=== PATIENT | female | born 1940 | race Caucasian/White ===

== ENCOUNTER 2017-10-26 10:09 | Inpatient (IN) | payer OTHER, MEDICARE, SELFPAY ==
[2017-10-26] VITALS (7 sets, daily range): BP systolic 105–143; BP diastolic 43–90; PULSE 66–75; RESP 14–18; TEMP 36.6–37.1; O2SAT 94–98; BMI 24.7; BMI 25.4; BMI 25.5
--- NOTE | 2017-10-26 10:34 | RAD_ITS ---
STUDY: X-RAY - PELVIS AND LEFT HIP REASON FOR EXAM: Left hip pain, fall 1 week ago. TECHNIQUE: Radiological exam, hip, unilateral, with pelvis when performed; 2 or 3 views. COMPARISON: None. FINDINGS: There is vascular calcification. There are degenerative changes of the lower lumbar spine There is mild enthesopathy of the iliac wings bilaterally. Normal bilateral superior and inferior pubic rami. Normal pubic symphysis. Normal bilateral ischial tuberosities. There is a displaced left femoral neck fracture. Normal acetabulum. Normal hip joint. RAD/Hip 2-3 Views with Pelvis IMPRESSION: Left femoral neck fracture. Electronically Signed: Rene Martin MD at 11:44 EST Tel , Service support ,
--- NOTE | 2017-10-26 11:15 | RAD_ITS ---
STUDY: X-RAY CHEST REASON FOR EXAM: Female, 77 years old. Trauma, status post fall TECHNIQUE: PA and lateral views of the chest. COMPARISON: None. FINDINGS: There is some atelectasis at the right lung base. The left upper lobe is hyperinflated. There is no demonstrated pleural abnormality. Normal size heart. Normal mediastinum and laura. Normal visualized pulmonary arteries. There is mild calcification of the aortic arch. There are diffuse degenerative changes of the visualized thoracic spine. Normal visualized ribs, clavicles, and shoulders. There is no demonstrated abnormality of the visualized soft tissue structures of the upper abdomen. RAD/Chest 1 View IMPRESSION: Right basilar atelectasis. Hyperinflation of the left upper lobe. Electronically Signed: Shorty Ponce DO at 12:03 EST Tel , Service support ,
--- NOTE | 2017-10-26 11:55 | EKG12_ITS ---
Test Reason : FALL Blood Pressure : / mmHG Vent. Rate : 067 BPM Atrial Rate : 067 BPM P-R Int : 162 ms QRS Dur : 126 ms QT Int : 410 ms P-R-T Axes : 034 -45 008 degrees QTc Int : 433 ms Normal sinus rhythm Leftward axis Left bundle branch block Abnormal ECG Confirmed by PETRONA BRUNSON, ADALGISA ([id number]), news editor ROBER BEDOLLA ([id number]) on 10/28/2017 1:23:10 PM Referred By: JAZ Confirmed By:ADALGISA RUSS MD
--- NOTE | 2017-10-26 12:17 | ED.DCSUM_ITS ---
- ER Visit Summary Date of Service: 10/26/17 Chief Complaint: Left hip and groin pain History of Present Illness: The patient is a 77 F who had a mechanical fall 8 days ago. She was at work. She tripped over a patient's walker. She was able to stand up and partially weight-bear. She has been ambulate and very little at home. She has been transferring from a chair to a bedside commode. Eyes any other injuries. She denies head injury loss of consciousness headache chest pain shortness of breath back pain abdominal pain or injury to any other extremity. Physical Examination: afebrile vitals are stable Heart regular rate and rhythm Lungs are clear Abdomen soft Patient has painful limited range of motion of the left hip pelvis is stable to compression normal range of motion without pain of the bilateral upper extremities and right lower extremity. Active full range of motion the knee ankle and foot with no pain. 2+ dorsalis pedis pulses Test Results: Chest x-ray shows atelectasis and hyperinflation of the left upper lobe. Hip x-ray does show left femoral neck fracture. EKG shows sinus rhythm at a rate of 67 with a left bundle branch block. Labs including CBC BMP and INR currently pending. Emergency Department Course and Treatment: X-ray does show a femoral neck fracture. Patient was discussed with orthopedics and will be admitted to the hospitalist service with plan for surgical intervention tomorrow. Treatment Plan: [] Disposition: Admit Impression: Left hip fracture This note was generated with [employer] dictation software. It may contain incorrect words, spelling, and punctuation that were not noted in review of the chart prior to signing ED Disposition - Plan for ED Patient: Chief Complaint: Fall Referrals: Donald Munguia MD [Primary Care Provider] -
--- NOTE | 2017-10-26 12:23 | ED.RN ---
PT REFUSES PAIN MEDICATION AT THIS TIME. MEDICATION WILL REMAIN ON THE MAR FOR FUTURE ADMINISTRATION.
[2017-10-26 12:35] LABS: Absolute Lymphocyte Count 1.42 X10^3/ul (0.83-4.51); Absolute Neutrophil Count 10.8 X10^3/uL (2.0-7.7); Basophil# 0.05 X10^3/uL; Basophil% 0.4 % (0-1); Eosinophil# 0.37 X10^3/uL; Eosinophils% 2.7 % (0-5); Hematocrit 42.4 % (37-47); Hemoglobin 13.9 g/dl (12.0-15.0); Lymphocyte # 1.42 X10^3/ul (4.0); Lymphocyte % 10.5 % (19-41); Mean Corp Hgb Conc 32.8 g/gl (32-36); Mean Corpuscular Volume 91.4 fL (81-99); Mean Platelet Vol. 10.2 fl (6.2-12.0); Monocyte# 0.82 X10^3/uL; Monocyte% 6.1 % (0-10); Neutrophil # 10.84 X10^3/uL (2.7-7.7); Neutrophil % 80.1 % (47-70); Platelet Count 388 K/mm3 (150-450); RBC Distribution Width CV 13.2 % (11.6-14.6); RBC Distribution Width SD 44.1 fl (35.1-43.9); Red Blood Count 4.64 M/mm3 (4.2-5.4); White Blood Count 13.5 K/mm3 (4.4-11.0)
[2017-10-26 12:36] LABS: POSITIVE COUNT NO; POSITIVE DIFFERENTIAL NO; POSITIVE MORPHOLOGY NO
[2017-10-26 12:39] LABS: Anion Gap 5 (5-15); BUN 23 mg/dL (7-18); BUN/Creat Ratio 26.7 RATIO (10-20); Calcium,Total 9.6 mg/dL (8.5-10.1); Chloride 108 mmol/L (98-107); Creatinine, Serum 0.86 mg/dL (0.55-1.02); EST Glomerular Filtration Rate 68 mL/min (>60); Est Glom Filt Rate - Afr Amer 83 mL/min (>60); Estimated Creatinine Clearance 46.76 ml/min; Glucose 104 mg/dL (74-106); International Normalized Ratio 1.2; Potassium 4.1 mmol/L (3.5-5.1); Prothrombin Time (Protime)PT. 14.4 SECONDS (11.7-14.9); Sodium Level 140 mmol/L (136-145)
--- NOTE | 2017-10-26 13:53 | PCM.HP.STD ---
Problem List (1) Dilated cardiomyopathy Status: Chronic (2) History of left heart catheterization Status: Chronic Comment: 07/30/2009 but report not in [facility]: reported done by Dr. Guaman (3) Hyperlipidemia Status: Chronic (4) Hypertension Status: Chronic (5) Nonrheumatic mitral valve regurgitation Status: Chronic History of Present Illness Date of Admission: 10/26/17 Chief Complaint: Left hip pain The patient is a 77 year old F with past medical history of nonischemic cardiomyopathy with an ejection fraction of about 35% who fell at home about a week ago and started experiencing left hip pain but did not seek medical attention until today when her pain became unbearable and she came to the emergency room. X-rays demonstrated left femoral neck fracture, she is being admitted to the hospital for operative repair. Orthopedic surgeon was consulted from the emergency room. Her functional status , she continues to exercise and she works part-time. She denies any chest pain or shortness of breath at rest or with exertion. She also denies orthopnea, paroxysmal nocturnal dyspnea , pedal edema , palpitations or rapid heartbeat. She saw her die maker electronic, Dr. Rose last month who felt the patient was doing well clinically with no decompensation, he continued her medications without change and recommended six-month follow-up. Past Medical History Past Medical History (Chronic Problems): Chronic Problems (Last Reviewed 09/15/17 @ 09:24 by Freddy Rose MD) History of left heart catheterization (Chronic) 07/30/2009 but report not in [facility]: reported done by Dr. Guaman Hyperlipidemia (Chronic) Hypertension (Chronic) Dilated cardiomyopathy (Chronic) Nonrheumatic mitral valve regurgitation (Chronic) Allergies No Known Allergies Allergy (Verified 10/26/17 10:15) Home Medications: Ambulatory Orders Medication Instructions Recorded aspirin 81 mg tablet,delayed 81 mg PO QDAY 09/11/17 release furosemide 20 mg tablet 20 mg PO QDAY PRN tab 09/11/17 Carvedilol [Coreg] 12.5 mg PO BID 10/26/17 Losartan Potassium [Cozaar] 25 mg PO DAILY 10/26/17 Spironolactone [Aldactone] 25 mg PO DAILY 10/26/17 Smoking Status: Light Smoker (<10/day) Review of Systems Comment: All Systems were reviewed with pertinent positives mentioned in the HPI above. VTE Information - Inpt Only VTE Present on Admission: No VTE Mechan Device Prophylaxis: SCD's VTE Pharm Prophylaxis ordered?: No - Physical Exam General: Alert, Oriented x3 HEENT: Atraumatic Oral: Moist Mucosa Neck: Supple, No JVD Cardiovascular: Regular rate, Normal S1, Normal S2 Abdomen: Bowel Sounds Present, Soft, Non Tender Extremities: No edema Neurological: Cranial nerves II-XII grossly intact Vital Signs Temp Pulse Resp BP Pulse Ox 97.9 F 67 18 122/90 H 94 10/26/17 13:42 10/26/17 13:42 10/26/17 13:42 10/26/17 13:42 10/26/17 13:42 Oxygen Delivery Method Room Air Weight: 65.317 kg Body Mass Index (BMI) 25.4 Laboratory Tests Past 24 Hrs 10/26/17 10/26/17 10/26/17 12:20 12:20 12:20 WBC 13.5 H RBC 4.64 Hgb 13.9 Hct 42.4 MCV 91.4 MCH 30.0 MCHC 32.8 RDW 13.2 RDW Differential 44.1 H Plt Count 388 MPV 10.2 Immature Gran % (Auto) 0.200 Neut % (Auto) 80.1 H Lymph % (Auto) 10.5 L [place] % (Auto) 6.1 Eos % (Auto) 2.7 Baso % (Auto) 0.4 Absolute Neuts (auto) 10.8 H Absolute Lymphs (auto) 1.42 Total Counted Not Reportable PT 14.4 INR 1.2 Sodium 140 Potassium 4.1 Chloride 108 H Carbon Dioxide 27.0 Anion Gap 5 BUN 23 H Creatinine 0.86 Estim Creat Clear Calc 46.76 Est GFR (MDRD) Af Amer 83 Est GFR (MDRD) Non-Af 68 BUN/Creatinine Ratio 26.7 H Glucose 104 Calcium 9.6 Assessment/Plan 1. Left femoral neck fracture; we will optimize pain control at this time, orthopedic surgeon has been consulted for operative repair. She is medically stable to proceed with operative repair without any prohibitive risk. Regarding her cardiac status, the patient was just seen by her die maker electronic last month , who felt the patient was clinically stable with no change in medications. I do not feel further cardiac testing is warranted at this time. I will recommend judicious use of IV fluids due to her stable cardiomyopathy. 2. Nonischemic cardiomyopathy; we will continue her Coreg and AMY inhibitors. 3. Hypertension; her blood pressure is controlled. 4. DVT prophylaxis with mechanical and pharmacological modalities. . Code Visit Inpatient E&M: 70119 Init Hosp L2
--- NOTE | 2017-10-26 16:13 | ECHOD_ITS ---
Reason For Study: pre-operative Procedure This was a 2D Doppler, Color Flow transthoracic echocardiogram. The study was technically difficult. Exam performed supine due to left hip fracture. Exam performed portable in patient room. Left Ventricle Mildly dilated left ventricle. The estimated ejection fraction is 35-40 %. Stage 1 diastolic dysfunction. There is moderate to severe global hypokinesis of the left ventricle. Right Ventricle Normal size and thickness. Normal systolic function. Atria The left atrium is mildly enlarged. Normal right atrium. Normal atrial septum. Mitral Valve Mild focal mitral valve calcification, bileaflet. Trivial mitral valve insufficiency. Tricuspid Valve Normal tricuspid valve. Trivial tricuspid valve insufficiency. Right ventricular systolic pressure estimated to be 35 mmHg. Aortic Valve Normal aortic valve. Trisinus/trileaflet aortic valve. Pulmonic Valve Normal pulmonic valve. Great Vessels Normal aortic root. Normal arch. Normal inferior vena cava. Inferior vena cava collapse with sniff. Pericardium/Pleural No pericardial effusion. MMode/2D Measurements & Calculations LVIDd: 4.5 cm IVSd: 1.4 cm Ao root diam: 2.9 cm LVIDs: 3.4 cm LVPWd: 1.2 cm LA dimension: 3.9 cm RVDd: 3.0 cm FS: 24.0 % LAV(MOD-bp): 82.9 ml LA A4 area: 24.0 cm2 LAV(MOD-bp) Indexed: 49.3 ml/m2 LAV(MOD-sp2): 69.1 ml LAV(MOD-sp4): 82.8 ml Doppler Measurements & Calculations MV E max rajan: 59.3 cm/sec Lat Peak E' Rajan: 4.3 cm/sec Med Peak E' Rajan: 4.0 cm/sec MV A max rajan: 144.4 cm/sec E/E' lat: 13.7 E/E' med: 14.8 MV E/A: 0.41 Ao V2 max: 151.0 cm/sec LV V1 max: 87.4 cm/sec PA V2 max: 84.7 cm/sec Ao max P.1 mmHg LV V1 max P.1 mmHg PI dec slope: 157.9 cm/sec2 TR max rajan: 257.5 cm/sec TR max P.6 mmHg Interpretation Summary Mildly dilated left ventricle. The estimated ejection fraction is 35-40 %. There is moderate to severe global hypokinesis of the left ventricle. Stage 1 diastolic dysfunction. Trivial mitral valve insufficiency. Trivial tricuspid valve insufficiency. Right ventricular systolic pressure estimated to be 35 mmHg. Compared to echo report dated 03/03/2016, no appreciable changes noted. Dr. Calle notified at 0967 today. Ordering Physician: Kacie Agustin Referring Physician: Donald Munguia Performed By: Ania Puckett RDCS, RVT
--- NOTE | 2017-10-26 17:04 | PCM.CONS.B ---
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 Patient thought she had a simple groin strain and waited roughly 8 days until going to the emergency room due to increased left hip pain where she was found to have displaced mid cervical femoral neck fracture. Patient denies any other associated upper or lower extremity issues. She would point to the left hip specifically. No other fevers chills nausea vomiting chest pain or shortness of breath. Medical history and allergies reviewed. Objective: Patient is otherwise alert oriented ?3 in no acute distress. Appropriate eye contact and affect. Patient remains intact from L1-S1 distributions bilaterally. She has +2 pulses. EHL anterior tibialis gastrocsoleus peroneals are 5 out of 5 bilaterally. Patient is tender palpation across the left hip no signs of an expanding hematoma or significant ecchymosis. Patient is mildly shortened and externally rotated. Patient has no long bone pain to the femur knee or tibia of the ipsilateral side. Patient's right hip examination shows flexion in neutral rotation of roughly 25?. She has a negative stress exam. A perform straight leg raise without lag. Abductor and abductor strength is otherwise maintained. Negative Mike height. No adenopathy. X-rays: Evaluated myself the patient-displaced mid cervical femoral neck fracture. No obvious blastic or lytic lesions could be appreciated. Joint spaces otherwise well-preserved to the bilateral hips. Degenerative disc disease is noted to the lumbar spine. Assessment: Left displaced mid cervical femoral neck fracture. Plan: At this point time I discussed the patient operative versus nonoperative management. Patient would like to proceed with operative intervention. At this point time patient be counseled consented for a left hip hemiarthroplasty most likely using a press-fit secondary to her appearance of good bone quality. However the patient is aware that she may require cementing if needed. Patient understands risks and benefits to include damage to nerves muscles arteries and veins, development of DVT PE infection or and/or dislocation. At this point time patient would like to proceed with intervention. We will go and make her n.p.o. at midnight and place antibiotics of the chart. Anticipate surgery tomorrow morning either as a first case and/or if it is going to go later after my elective cases around 11. Patient aware that we will use aspirin 325 p.o. twice daily with appropriate GI prophylaxis for DVT treatment and/or prophylaxis postoperatively. Early aggressive range of motion will be allowed. I discussed with the patient posterior hip precautions ?6 weeks. The patient is interested if possible going home postop day 1 which I am okay with but again that will be determined by her overall cardiovascular function postoperatively and the medical team. She feels that she has adequate family in order to go home but may need home health for physical therapy. We will consult case management for assistance. Any major issues please contact me.
--- NOTE | 2017-10-26 17:09 | CON.PCM_ITS ---
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 Patient thought she had a simple groin strain and waited roughly 8 days until going to the emergency room due to increased left hip pain where she was found to have displaced mid cervical femoral neck fracture. Patient denies any other associated upper or lower extremity issues. She would point to the left hip specifically. No other fevers chills nausea vomiting chest pain or shortness of breath. Medical history and allergies reviewed. Objective: Patient is otherwise alert oriented ?3 in no acute distress. Appropriate eye contact and affect. Patient remains intact from L1-S1 distributions bilaterally. She has +2 pulses. EHL anterior tibialis gastrocsoleus peroneals are 5 out of 5 bilaterally. Patient is tender palpation across the left hip no signs of an expanding hematoma or significant ecchymosis. Patient is mildly shortened and externally rotated. Patient has no long bone pain to the femur knee or tibia of the ipsilateral side. Patient' s right hip examination shows flexion in neutral rotation of roughly 25?. She has a negative stress exam. A perform straight leg raise without lag. Abductor and abductor strength is otherwise maintained. Negative Mike height. No adenopathy. X-rays: Evaluated myself the patient-displaced mid cervical femoral neck fracture. No obvious blastic or lytic lesions could be appreciated. Joint spaces otherwise well-preserved to the bilateral hips. Degenerative disc disease is noted to the lumbar spine. Assessment: Left displaced mid cervical femoral neck fracture. Plan: At this point time I discussed the patient operative versus nonoperative management. Patient would like to proceed with operative intervention. At this point time patient be counseled consented for a left hip hemiarthroplasty most likely using a press-fit secondary to her appearance of good bone quality. However the patient is aware that she may require cementing if needed. Patient understands risks and benefits to include damage to nerves muscles arteries and veins, development of DVT PE infection or and/or dislocation. At this point time patient would like to proceed with intervention. We will go and make her n.p.o. at midnight and place antibiotics of the chart. Anticipate surgery tomorrow morning either as a first case and/ or if it is going to go later after my elective cases around 11. Patient aware that we will use aspirin 325 p.o. twice daily with appropriate GI prophylaxis for DVT treatment and/or prophylaxis postoperatively. Early aggressive range of motion will be allowed. I discussed with the patient posterior hip precautions ?6 weeks. The patient is interested if possible going home postop day 1 which I am okay with but again that will be determined by her overall cardiovascular function postoperatively and the medical team. She feels that she has adequate family in order to go home but may need home health for physical therapy. We will consult case management for assistance. Any major issues please contact me.
[2017-10-26 17:42] LABS: Bacteria 0 SEEN /hpf (None Seen); Mucous, Urine 0 SEEN /hpf (<or=2+); Squamous Epithelial Cells - UA 0 SEEN /hpf (5-10)
[2017-10-26 18:14] LABS: Color, Urine Yellow (Yellow); Glucose, Dipstick Normal (Normal); Ketone-Dipstick Negative (Negative); Leukocyte Esterase-Dipstick 500 /ul (Negative); Nitrite-Dipstick Negative (Negative); Occult Blood-Urine 50 /ul (Negative); Protein-Dipstick 15 mg/dl (Negative); Specific Gravity, Urine 1.015 (1.002-1.030); Urine Bilirubin Dipstick Negative (Negative); Urine Clarity Cloudy (Clear); Urine Urobilinogen Normal (Normal)
[2017-10-26 18:22] LABS: Red Blood Cells-Urine 5-10 SEEN /hpf (0-5); White Blood Cells 50-100 SEEN /hpf (0-5)
[2017-10-26] MEDS: 0.9% NaCl Peripheral Flush Adult/Peds IV (18:40)
[2017-10-26 19:12] LABS: Probe Check PASS
[2017-10-26 19:24] LABS: M R Staph aureus DNA By PCR POSITIVE (Negative)
[2017-10-26] MEDS: HYDROcodone Bitartrate/Apap 5/325 Tablet PO (21:13)
[2017-10-26] MEDS: Carvedilol 12.5 MG Tablet PO (21:14)
[2017-10-26] MEDS: Mupirocin Ointment 22gm Tube 1 APPLIC NASAL (21:14)
[2017-10-27] VITALS (20 sets, daily range): BP systolic 114–147; BP diastolic 60–74; PULSE 50–75; RESP 14–18; TEMP 36.3–36.8; O2SAT 94–100; BMI 25.4; BMI 25.5
[2017-10-27] MEDS: 0.9% NaCl Peripheral Flush Adult/Peds IV ×2 (04:48→22:47)
[2017-10-27 05:59] LABS: Absolute Lymphocyte Count 1.58 X10^3/ul (0.83-4.51); Basophil# 0.07 X10^3/uL; Basophil% 0.8 % (0-1); Eosinophil# 0.41 X10^3/uL; Eosinophils% 4.7 % (0-5); Hematocrit 37.7 % (37-47); Hemoglobin 12.1 g/dl (12.0-15.0); Lymphocyte # 1.58 X10^3/ul (4.0); Lymphocyte % 18.1 % (19-41); Mean Corp Hgb Conc 32.1 g/gl (32-36); Mean Corpuscular Hgb 29.6 pg (27.0-32.0); Mean Corpuscular Volume 92.2 fL (81-99); Mean Platelet Vol. 10.2 fl (6.2-12.0); Monocyte# 0.65 X10^3/uL; Monocyte% 7.4 % (0-10); Neutrophil # 5.99 X10^3/uL (2.7-7.7); Neutrophil % 68.7 % (47-70); Platelet Count 329 K/mm3 (150-450); RBC Distribution Width CV 13.3 % (11.6-14.6); RBC Distribution Width SD 44.5 fl (35.1-43.9); Red Blood Count 4.09 M/mm3 (4.2-5.4); White Blood Count 8.7 K/mm3 (4.4-11.0)
[2017-10-27 06:01] LABS: POSITIVE COUNT NO; POSITIVE DIFFERENTIAL NO; POSITIVE MORPHOLOGY NO
[2017-10-27 06:19] LABS: Anion Gap 8 (5-15); BUN 23 mg/dL (7-18); BUN/Creat Ratio 27.5 RATIO (10-20); Calcium,Total 8.8 mg/dL (8.5-10.1); Chloride 109 mmol/L (98-107); Creatinine, Serum 0.84 mg/dL (0.55-1.02); EST Glomerular Filtration Rate 71 mL/min (>60); Est Glom Filt Rate - Afr Amer 86 mL/min (>60); Estimated Creatinine Clearance 47.87 ml/min; Glucose 114 mg/dL (74-106); Potassium 3.8 mmol/L (3.5-5.1); Sodium Level 141 mmol/L (136-145)
--- NOTE | 2017-10-27 08:35 | NURSING ---
Pt taken off of floor to ac to await surgery, call placed to ac and report given to raul. pt has two daughters present whom went to surgery with her
--- NOTE | 2017-10-27 09:45 | FEM_PTH ---
PATIENT: HELENA BURCH LOC: [facility] U#:[id number] AGE/SX: 77/F ROOM: [facility]318 RE10/26/[address]: Kacie Agustin MD : [id number] BED: 1 DIS: 10/28/2017 SPEC #: [id number] RECD: 10/27/17 15:43 STATUS: BRYNN REPalma #: [id number] MEME: 10/27/17 09:[address]: Bob Madrid DEPT: SURGICAL PATHOLOGY RECD BY: Krishna Ngo ENTERED: 10/28/17 06:50 SP TYPE: FEM HEAD OTHR DR: MD Dr. Donald Malave MD Tissues: Femoral region, NOS Procedures: Decalcification bone/plaque Surgery Specimen Level IV HEADER OPERATION: Hemiarthroplasty, hip, posterior PRE-OP DIAGNOSIS: Left hip fracture TISSUE SUBMITTED: Femoral head and soft tissue MICROSCOPIC DIAGNOSIS Femoral head and soft tissue, hemiarthroplasty: Femoral head and detached pieces of bone with focal area of hemorrhage, clinically left hip fracture. Fragments of fibroadipose tissue and fibroconnective tissue. ERIKA:gio 11/05/17 MICROSCOPIC DESCRIPTION Slides are reviewed. GROSS DESCRIPTION Received is one container labeled with the patient's name and designated left femoral head and soft tissue. The specimen consists of a femoral head measuring 4.5 x 4.5 x 4 cm. The articular surface is smooth and glistening. The nonarticular surface is irregular, granular and consistent with fracture site. Also present in the specimen container are multiple irregular fragments of epps-red soft tissue measuring 4 x 3.4 x 0.8 cm. Also present in the specimen container are several smaller fragments of bone measuring in aggregate 4.5 x 2.8 x 1 cm. Brake Repair Supervisor sections are submitted in three cassettes as follows: 1 - soft tissue, 2 - femoral head after decalcification, 3 - bone after decalcification. / AM:gio 10/28/17 TC:5 CPT: 77589, 86018
--- NOTE | 2017-10-27 10:05 | CASEMGMT ---
Social Work Note Call from Jesse with [facility] stating that this pt is a Worker's Comp. She is verifying which [facility] has the pt and will notify SW once determined. SW to continue to follow and assist with discharge planning. Pt presently down for surgery. Will complete assessment once pt returns to the floor. KERRIE GuoW
--- NOTE | 2017-10-27 11:25 | RAD_ITS ---
STUDY: X-RAY - PELVIS AND LEFT HIP REASON FOR EXAM: Female, 77 years old. Postop hip replacement TECHNIQUE: Radiological exam, hip, unilateral, with pelvis when performed; 1 view COMPARISON: 10/26/2017 FINDINGS: There is a non-specific bowel gas pattern. Normal visualized soft tissue structures. Normal bilateral iliac wings, sacroiliac joints and visualized sacrum. Normal bilateral superior and inferior pubic rami. Normal pubic symphysis. Normal bilateral ischial tuberosities. Postoperative changes of recent left total hip arthroplasty are seen. The orthopedic hardware is intact. RAD/Hip Min 2 Views (Portable) IMPRESSION: Recent left total hip arthroplasty. Intact orthopedic hardware. Electronically Signed: Shorty Ponce DO at 16:05 EST Tel , Service support ,
--- NOTE | 2017-10-27 11:29 | OP.PN_ITS ---
Immediate Post-Op Note Date of Procedure: 10/27/17 Primary Surgeon/Physician: Bob Madrid DO concrete spreader: Kely Ricardo Pre-Operative Diagnosis: Left hip displaced and closed mid cervical femoral neck fracture Post-Operative Diagnosis: Same as above Surgery/Procedure Performed:: Left hip hemiarthroplasty using the [employer]olade press-fit system Description of Surgical Findings:: See dictation Estimated Blood Loss: 100 Specimen's removed: Bone cuts Type of Anesthesia:: General - Admit VTE Documentation VTE Present on Admission: No VTE Mechan Device Prophylaxis: SCD's, Knee High LAINA Hose VTE Pharm Prophylaxis ordered?: Yes
--- NOTE | 2017-10-27 11:29 | PCM.OPRPT ---
Report of Operation Date of Procedure: 10/27/17 Pre-Operative Diagnosis: Left hip displaced and closed mid cervical femoral neck fracture Post-Operative Diagnosis: Same as above Surgery/Procedure Performed:: Left hip hemiarthroplasty using the [employer] Accolade press-fit system Description of Surgical Findings:: 77-year-old female who had a fall from standing height rolled resulting in a left closed mid cervical femoral neck fracture. This resulted roughly 9 days ago. The patient made an attempt at thinking she had a simple hip flexor strain and also developed a subsequent sacral decubiti. Patient came to the emergency room found to have a displaced femoral neck fracture was medically cleared for operative intervention. Patient underwent standard preoperative screening and showed MRSA and subsequently had vancomycin as her preoperative antibiotic. Again patient went under successful preoperative clearance to the hospitalist team. She was counseled consented for a left hip hemiarthroplasty or any indicated procedure. Patient was met in the holding area where her left lower extremity was marked and identified with surgeon. Patient was taken the operating room in satisfactory condition with somewhat to place to identify patient up procedure limb. Patient received 1 g of vancomycin and 1 g of TXA. She underwent a successful intubation. Patient was then placed in the right lateral decubitus position with a peroneal pad for the down leg in an appropriate placed axillary roll. She was then prepped and draped in the usual fashion. Patient had about a 12 cm incision made two thirds above the right she is me the left greater trochanter down to one third distal. The IT band was longitudinally split in the gluteal split as well proximally and distally. The patient underwent a standard bursectomy across the greater trochanter. At that point time a standard approach was undertaken releasing the short external rotators off the femoral neck in a subperiosteal fashion. The piriformis tendon was preserved. The capsule was longitudinally incised. The head and neck were then presented. Standard neck cut was performed roughly 15 mm above the greater troches lesser trochanter. At that point time the head was presented removed in continuity from the acetabulum. It measured roughly 45 mm in overall diameter. A minimal amount of resection of the labrum was undertaken for better visualization. Patient had no loose bodies in the cotyloid fossa. The wound was then copiously irrigated remove the excess debris both manually and through suction. Any excess bleeders were cauterized accordingly. The patient showed excellent cartilage maintenance within the acetabulum allowing for proceeding with the hemiarthroplasty. At that point time we turned our attention to the femoral neck. Standard preparing box tender was introduced and to lateralize. Canal finder then placed. We then broached reamed up to a size 6 femoral stem using a press-fit technique. I felt that we had good overall fixation. We separately trialed using a standard offset and a 45 mm head. The hip was reduced and showed excellent range of motion with flexion to 90? abduction to 10? and internal rotation of about 70 before there is any form of subluxation at best to the femoral neck. The patient showed good overall mechanical alignment and length. Again she had no signs of any extension and flexion loss. The hip was then dislocated and the trial stems were removed. At that point time the wounds were copiously irrigated. Gloves were changed and the 6 stem was then impacted using press-fit technique. I elected to trial one additional time with a -3 offset and felt that we had a little bit of a shock to the hip and felt the overall leg length was off slightly. I elected at that point time to go ahead and proceed with the standard offset. Final components were then impacted to the femoral head and neck. The hip was reduced reevaluation the range of motion showed no further signs of any instability. At that point time this patient underwent a standard closure of the short external rotators using 3 drill hole technique through the greater trochanter. This was done using standard technique with #2 [employer]. Upon completion the wound was copious irrigated additional time we did not see any signs of any bleeders that required cauterization. We subsequently elected to close the IT band using [id number] technique with #1 Vicryl. Skin was reapproximated 2-0 Vicryl running subicular Monocryl Dermabond and then a Silverlon dressing was applied. Abduction pillow placed. I was scrubbed and available time during our procedure. There is no drains or comp occasions. DVT prophylaxis will include SCDs teds and 325 mg p.o. twice daily with GI prophylaxis of aspirin. Aggressive range of motion will be allowed. Posterior hip precautions ?6 weeks. Implants included the [employer] Accolade 2 press-fit total hip system. Size 6 stem and a 45 mm outer diameter head with a 26 mm inner. He had no drains or complications any issues please contact me. stock wetter: Kely Ricardo Type of Anesthesia:: General Specimen's removed: Bone cuts Estimated Blood Loss (mL): 100 Grafts/Implants Used: [place] Accolade 2 press-fit 6 stem, 45 outer and 26 mm inner ,0 Offset - Complications None - Admit VTE Documentation VTE Mechan Device Prophylaxis: SCD's
[2017-10-27] MEDS: Mupirocin Ointment 22gm Tube 1 APPLIC NASAL ×2 (14:01→21:11)
[2017-10-27] MEDS: Carvedilol 12.5 MG Tablet PO ×2 (14:01→21:10)
[2017-10-27] MEDS: Losartan Potassium 25 MG Tablet PO (14:01)
--- NOTE | 2017-10-27 15:16 | CASEMGMT ---
Social Work Note Face to face with the pt to discuss discharge planning. Introduced self and role at [facility]. The pt reports that she lives alone in a mobile home, but has family that lives locally and will be assisting her. DME consists of a walker and elevated toilet riser. Unsure if she will be doing outpatient therapy or HHC, but reports that she will discuss with family and wait until PT/OT makes a recommendation. No further needs identified at this time. Call to [employer]Rank who states that the pt's MCO is [facility] [P: [phone]] [F:[phone]]. Claim number is [id number]. Updated RN CT Thomason. Plan: KELSEA Her, PAIL TESTER, ELECTRIC LINEMAN
--- NOTE | 2017-10-27 16:47 | PCM.PN.HOSP ---
Subjective: CC: Left hip fracture The patient underwent left hip arthroplasty today, she is awake alert and oriented to time place and person, she denies any chest pain shortness of breath or palpitations. Vitals/I&O's: Vital Signs Temp Pulse Resp BP Pulse Ox 97.3 F L 68 18 138/71 H 95 10/27/17 13:54 10/27/17 13:54 10/27/17 13:54 10/27/17 13:54 10/27/17 14:18 Oxygen Delivery Method Room Air Weight: 65.317 kg Body Mass Index (BMI) 25.4 Intake and Output for Last 24 Hours 10/25/17 10/26/17 10/27/17 23:59 23:59 23:59 Intake Total 500 / 500 1100 / 1100 Output Total 300 / 300 700 / 700 Balance 200 / 200 400 / 400 General: Alert, Oriented x3 HEENT: Atraumatic Oral: Moist Mucosa Neck: Supple, No JVD Lungs: Clear to auscultation Cardiovascular: Regular rate, Normal S1, Normal S2 Abdomen: Bowel Sounds Present, Soft, Non Tender Extremities: No clubbing Neurological: Cranial nerves II-XII grossly intact, Deep Tendon Reflexes 2+/4 and Symmetrical, Neuro grossly intact, Motor Exam 5/5 strength throughout Laboratory Results 10/26/17 16:35: Urine Color Yellow, Urine Clarity Cloudy, Urine pH 8.0, Ur Specific [place] 1.015, Urine Protein 15 H, Urine Glucose (UA) Normal, Urine Ketones Negative, Urine Occult Blood 50 H, Urine Nitrite Negative, Urine Bilirubin Negative, Urine Urobilinogen Normal, Ur Leukocyte Esterase 500 H, Urine RBC 5-10 SEEN, Urine WBC 50-100 SEEN, Ur Squamous Epith Cells 0 SEEN, Urine Bacteria 0 SEEN, Urine Mucus 0 SEEN 10/26/17 17:35: MRSA (PCR) POSITIVE H 10/27/17 05:25: WBC 8.7, RBC 4.09 L, Hgb 12.1, Hct 37.7, MCV 92.2, MCH 29.6, MCHC 32.1, RDW 13.3, RDW Differential 44.5 H, Plt Count 329, MPV 10.2, Immature Gran % (Auto) 0.300, Neut % (Auto) 68.7, Lymph % (Auto) 18.1 L, [place] % (Auto) 7.4, Eos % (Auto) 4.7, Baso % (Auto) 0.8, Absolute Neuts (auto) 6.0, Absolute Lymphs (auto) 1.58, Total Counted Not Reportable 10/27/17 05:25: Sodium 141, Potassium 3.8, Chloride 109 H, Carbon Dioxide 24.0, Anion Gap 8, BUN 23 H, Creatinine 0.84, Estim Creat Clear Calc 47.87, Est GFR (MDRD) Af Amer 86, Est GFR (MDRD) Non-Af 71, BUN/Creatinine Ratio 27.5 H, Glucose 114 H, Calcium 8.8 Current Medications Hydrocodone Bitart/Acetaminophen ([place] 5mg-325mg) 2 tablet PO Q4H PRN PRN PRN Reason: SEVERE PAIN (6-10/10) Last Admin: 10/26/17 21:13 Dose: 2 tablet Ascorbic Acid (Vitamin C) 1,000 mg PO DAILY@0800 [facility] Aspirin [facility]) [facility] Carvedilol (Coreg) 12.5 mg PO BID [facility] Last Admin: 10/27/17 14:01 Dose: 12.5 mg Famotidine (Pepcid) 20 mg PO DAILY [facility] Lactated Ringer's () 1,000 mls @ 50 mls/hr IV .Q20H [facility] Vancomycin HCl 750 mg/ Sodium (Chloride) 265 mls @ 265 mls/hr IV X1 ONE Stop: 10/27/17 22:59 Losartan Potassium (Cozaar) 25 mg PO DAILY [facility] Last Admin: 10/27/17 14:01 Dose: 25 mg Magnesium Hydroxide (Milk Of Magnesia) 30 ml PO DAILY PRN PRN PRN Reason: Constipation Morphine Sulfate (Morphine) 2 - 4 mg IV Q2H PRN PRN PRN Reason: SEVERE PAIN (6-10/10) Last Admin: 10/27/17 08:02 Dose: 2 mg Morphine Sulfate (Morphine) 2 - 4 mg IV Q2H PRN PRN PRN Reason: SEVERE PAIN (6-10/10) Last Admin: 10/27/17 04:47 Dose: 4 mg Multivitamins/Minerals (Multivitamin With Minerals) [facility] Mupirocin (Bactroban) 1 applic NASAL BID [facility] PRN Reason: Protocol Stop: 10/31/17 10:01 Last Admin: 10/27/17 14:01 Dose: 1 applicatio Ondansetron HCl (Zofran) 4 mg IV Q8H PRN PRN PRN Reason: NAUSEA Promethazine HCl (Phenergan (Ll)) 12.5 mg IM Q6H PRN PRN; Protocol PRN Reason: NAUSEA/VOMITING Senna/Docusate Sodium (Senokot-S, Susan-Colace) 2 tablet PO BID ELKIN Sodium Chloride () 5 - 30 ml IV UD PRN PRN Reason: SALINE FLUSH Last Admin: 10/27/17 04:48 Dose: 10 ml Assessment/Plan 1. Left femoral neck fracture; status post left hip arthroplasty, post operative management per orthopedic surgeon's orders 2. Nonischemic cardiomyopathy; we will continue her Coreg and AMY inhibitors. 3. Hypertension; her blood pressure is controlled. 4. DVT prophylaxis with mechanical and Lovenox . . Code Visit Inpatient E&M: 29510 Subs Hosp L2
--- NOTE | 2017-10-27 16:50 | PN_ITS ---
Subjective: CC: Left hip fracture The patient underwent left hip arthroplasty today, she is awake alert and oriented to time place and person, she denies any chest pain shortness of breath or palpitations. Vitals/I&O's: Vital Signs Temp Pulse Resp BP Pulse Ox 97.3 F L 68 18 138/71 H 95 10/27/17 13:54 10/27/17 13:54 10/27/17 13:54 10/27/17 13:54 10/27/17 14:18 Oxygen Delivery Method Room Air Weight: 65.317 kg Body Mass Index (BMI) 25.4 Intake and Output for Last 24 Hours 10/25/17 10/26/17 10/27/17 23:59 23:59 23:59 Intake Total 500 / 500 1100 / 1100 Output Total 300 / 300 700 / 700 Balance 200 / 200 400 / 400 General: Alert, Oriented x3 HEENT: Atraumatic Oral: Moist Mucosa Neck: Supple, No JVD Lungs: Clear to auscultation Cardiovascular: Regular rate, Normal S1, Normal S2 Abdomen: Bowel Sounds Present, Soft, Non Tender Extremities: No clubbing Neurological: Cranial nerves II-XII grossly intact, Deep Tendon Reflexes 2+/4 and Symmetrical, Neuro grossly intact, Motor Exam 5/5 strength throughout Laboratory Results 10/26/17 16:35: Urine Color Yellow, Urine Clarity Cloudy, Urine pH 8.0, Ur Specific [place] 1.015, Urine Protein 15 H, Urine Glucose (UA) Normal, Urine Ketones Negative, Urine Occult Blood 50 H, Urine Nitrite Negative, Urine Bilirubin Negative, Urine Urobilinogen Normal, Ur Leukocyte Esterase 500 H, Urine RBC 5-10 SEEN, Urine WBC 50-100 SEEN, Ur Squamous Epith Cells 0 SEEN, Urine Bacteria 0 SEEN, Urine Mucus 0 SEEN 10/26/17 17:35: MRSA (PCR) POSITIVE H 10/27/17 05:25: WBC 8.7, RBC 4.09 L, Hgb 12.1, Hct 37.7, MCV 92.2, MCH 29.6, MCHC 32.1, RDW 13.3, RDW Differential 44.5 H, Plt Count 329, MPV 10.2, Immature Gran % (Auto) 0.300, Neut % (Auto) 68.7, Lymph % (Auto) 18.1 L, [place] % (Auto) 7.4, Eos % (Auto) 4.7, Baso % (Auto) 0.8, Absolute Neuts (auto) 6.0, Absolute Lymphs (auto) 1.58, Total Counted Not Reportable 10/27/17 05:25: Sodium 141, Potassium 3.8, Chloride 109 H, Carbon Dioxide 24.0, Anion Gap 8, BUN 23 H, Creatinine 0.84, Estim Creat Clear Calc 47.87, Est GFR ( MDRD) Af Amer 86, Est GFR (MDRD) Non-Af 71, BUN/Creatinine Ratio 27.5 H, Glucose 114 H, Calcium 8.8 Current Medications Hydrocodone Bitart/Acetaminophen ([place] 5mg-325mg) 2 tablet PO Q4H PRN PRN PRN Reason: SEVERE PAIN (6-10/10) Last Admin: 10/26/17 21:13 Dose: 2 tablet Ascorbic Acid (Vitamin C) 1,000 mg PO DAILY@0800 [facility] Aspirin (Aspirin) [facility] Carvedilol (Coreg) 12.5 mg PO BID [facility] Last Admin: 10/27/17 14:01 Dose: 12.5 mg Famotidine (Pepcid) 20 mg PO DAILY [facility] Lactated Ringer's () 1,000 mls @ 50 mls/hr IV .Q20H [facility] Vancomycin HCl 750 mg/ Sodium (Chloride) 265 mls @ 265 mls/hr IV X1 ONE Stop: 10/27/17 22:59 Losartan Potassium (Cozaar) 25 mg PO DAILY [facility] Last Admin: 10/27/17 14:01 Dose: 25 mg Magnesium Hydroxide (Milk Of Magnesia) 30 ml PO DAILY PRN PRN PRN Reason: Constipation Morphine Sulfate (Morphine) 2 - 4 mg IV Q2H PRN PRN PRN Reason: SEVERE PAIN (6-10/10) Last Admin: 10/27/17 08:02 Dose: 2 mg Morphine Sulfate (Morphine) 2 - 4 mg IV Q2H PRN PRN PRN Reason: SEVERE PAIN (6-10/10) Last Admin: 10/27/17 04:47 Dose: 4 mg Multivitamins/Minerals (Multivitamin With Minerals) [facility] Mupirocin (Bactroban) 1 applic NASAL BID [facility] PRN Reason: Protocol Stop: 10/31/17 10:01 Last Admin: 10/27/17 14:01 Dose: 1 applicatio Ondansetron HCl (Zofran) 4 mg IV Q8H PRN PRN PRN Reason: NAUSEA Promethazine HCl (Phenergan (Ll)) 12.5 mg IM Q6H PRN PRN; Protocol PRN Reason: NAUSEA/VOMITING Senna/Docusate Sodium (Senokot-S, Susan-Colace) 2 tablet PO BID ELKIN Sodium Chloride () 5 - 30 ml IV UD PRN PRN Reason: SALINE FLUSH Last Admin: 10/27/17 04:48 Dose: 10 ml Assessment/Plan 1. Left femoral neck fracture; status post left hip arthroplasty, post operative management per orthopedic surgeon's orders 2. Nonischemic cardiomyopathy; we will continue her Coreg and AMY inhibitors. 3. Hypertension; her blood pressure is controlled. 4. DVT prophylaxis with mechanical and Lovenox . . Code Visit Inpatient E&M: 36138 Subs Hosp L2
--- NOTE | 2017-10-27 17:59 | PCM.PN.ORT ---
Subjective: Day of surgery neuro check. No issues at this time. Patient reports having been up to the bathroom and walking around the room. Currently sitting in the chair upright eating. No acute distress. Conservative conversive at this time. These with surgery at this time. - Physical Exam General: Alert, Oriented x3, Cooperative, No apparent distress Musculoskeletal: - - Distally neurovascularly intact. EHL anterior tibialis gastrocsoleus peroneals 5 out of 5. X-rays reviewed show hardware well seated well-placed status post press-fit hemiarthroplasty. Vital Signs Temp Pulse Resp BP Pulse Ox 98.3 F 62 16 130/68 H 96 10/27/17 17:46 10/27/17 17:46 10/27/17 17:46 10/27/17 17:46 10/27/17 17:46 Oxygen Delivery Method Room Air Weight: 144 lb Body Mass Index (BMI) 25.4 Intake and Output for Last 24 Hours 10/25/17 10/26/17 10/27/17 23:59 23:59 23:59 Intake Total 500 / 500 1460 / 1460 Output Total 300 / 300 700 / 700 Balance 200 / 200 760 / 760 Laboratory Tests Past 24 Hrs 10/26/17 10/26/17 10/27/17 16:35 17:35 05:25 WBC 8.7 RBC 4.09 L Hgb 12.1 Hct 37.7 MCV 92.2 MCH 29.6 MCHC 32.1 RDW 13.3 RDW Differential 44.5 H Plt Count 329 MPV 10.2 Immature Gran % (Auto) 0.300 Neut % (Auto) 68.7 Lymph % (Auto) 18.1 L [place] % (Auto) 7.4 Eos % (Auto) 4.7 Baso % (Auto) 0.8 Absolute Neuts (auto) 6.0 Absolute Lymphs (auto) 1.58 Total Counted Not Reportable Sodium Potassium Chloride Carbon Dioxide Anion Gap BUN Creatinine Estim Creat Clear Calc Est GFR (MDRD) Af Amer Est GFR (MDRD) Non-Af BUN/Creatinine Ratio Glucose Calcium Urine Color Yellow Urine Clarity Cloudy Urine pH 8.0 Ur Specific [place] 1.015 Urine Protein 15 H Urine Glucose (UA) Normal Urine Ketones Negative Urine Occult Blood 50 H Urine Nitrite Negative Urine Bilirubin Negative Urine Urobilinogen Normal Ur Leukocyte Esterase 500 H Urine RBC 5-10 SEEN Urine WBC 50-100 SEEN Ur Squamous Epith Cells 0 SEEN Urine Bacteria 0 SEEN Urine Mucus 0 SEEN MRSA (PCR) POSITIVE H 10/27/17 05:25 WBC RBC Hgb Hct MCV MCH MCHC RDW RDW Differential Plt Count MPV Immature Gran % (Auto) Neut % (Auto) Lymph % (Auto) [place] % (Auto) Eos % (Auto) Baso % (Auto) Absolute Neuts (auto) Absolute Lymphs (auto) Total Counted Sodium 141 Potassium 3.8 Chloride 109 H Carbon Dioxide 24.0 Anion Gap 8 BUN 23 H Creatinine 0.84 Estim Creat Clear Calc 47.87 Est GFR (MDRD) Af Amer 86 Est GFR (MDRD) Non-Af 71 BUN/Creatinine Ratio 27.5 H Glucose 114 H Calcium 8.8 Urine Color Urine Clarity Urine pH Ur Specific [place] Urine Protein Urine Glucose (UA) Urine Ketones Urine Occult Blood Urine Nitrite Urine Bilirubin Urine Urobilinogen Ur Leukocyte Esterase Urine RBC Urine WBC Ur Squamous Epith Cells Urine Bacteria Urine Mucus MRSA (PCR) Assessment/Plan Assessment: After orthopedics status post left hip hemiarthroplasty for displaced mid cervical femoral neck fracture. History of congestive heart failure. Plan: Patient doing well at this time. Will reevaluate in the morning. If the patient is medically stable and H&H is appropriate, then I am okay with the patient going home tomorrow later in the day after physical therapy. Just need to make sure that all of the home health and assistive devices are there prior to discharge. Any issues contact me.
[2017-10-27] MEDS: Aspirin 325 MG Tablet PO (21:10)
[2017-10-27] MEDS: Senna/Docusate Sodium 1 Tablet 2 TABLET PO (21:10)
[2017-10-27] MEDS: Lactated Ringers 1,000 ML 50 ML IV (21:11)
[2017-10-28 02:00] VITALS: PULSE 58
[2017-10-28 02:45] VITALS: BP 129/76; PULSE 65; RESP 14; TEMP 36.6; O2SAT 99
--- NOTE | 2017-10-28 04:26 | NURSING ---
Sent following email to Saundra Amaya, wound nurse: Dr. Kristi Dash ordered a wound consult for room 318 d/t new opened areas in her groin region; beverly and mycostatin will be started this AM. I noticed you'd already been consulted for her pressure injury so was advised to email you in place of putting in another order. Thanks Along with the new opened areas in her groin region pt also has rash on her inner thigh that she states is 'new'
[2017-10-28] MEDS: Menthol/Lanolin/Calamine/Znox 113 GM Tube 1 APPLIC TOPICAL ×2 (06:41→08:36)
[2017-10-28] MEDS: Nystatin Powder 15gm Bottle 1 APPLIC TOPICAL ×2 (06:42→08:32)
[2017-10-28 06:55] LABS: Absolute Neutrophil Count 12.7 X10^3/uL (2.0-7.7); Anion Gap 9 (5-15); BUN 18 mg/dL (7-18); BUN/Creat Ratio 30.1 RATIO (10-20); Basophil# 0.03 X10^3/uL; Basophil% 0.2 % (0-1); Calcium,Total 8.9 mg/dL (8.5-10.1); Chloride 110 mmol/L (98-107); EST Glomerular Filtration Rate 104 mL/min (>60); Eosinophil# 0.13 X10^3/uL; Eosinophils% 0.8 % (0-5); Est Glom Filt Rate - Afr Amer 126 mL/min (>60); Estimated Creatinine Clearance 40.21 ml/min; Glucose 113 mg/dL (74-106); Hematocrit 35.2 % (37-47); Hemoglobin 11.7 g/dl (12.0-15.0); Lymphocyte % 10.5 % (19-41); Mean Corp Hgb Conc 33.2 g/gl (32-36); Mean Corpuscular Hgb 30.2 pg (27.0-32.0); Mean Platelet Vol. 10.2 fl (6.2-12.0); Monocyte# 1.63 X10^3/uL; Neutrophil % 78.1 % (47-70); Platelet Count 298 K/mm3 (150-450); Potassium 3.9 mmol/L (3.5-5.1); RBC Distribution Width CV 13.1 % (11.6-14.6); RBC Distribution Width SD 43.4 fl (35.1-43.9); Red Blood Count 3.87 M/mm3 (4.2-5.4); Sodium Level 138 mmol/L (136-145); White Blood Count 16.3 K/mm3 (4.4-11.0)
[2017-10-28 07:00] LABS: Differential Indicated SCAN CRITERIA MET; POSITIVE COUNT NO; POSITIVE DIFFERENTIAL YES; POSITIVE MORPHOLOGY NO
[2017-10-28 07:03] LABS: Differential Comment SCANNED
--- NOTE | 2017-10-28 07:25 | PCM.DC.THR ---
Discharge Activity: Return to Normal Activity, May not drive while taking narcotic pain medications., May Shower, Use Walker Ice area for (Minutes): 20 Weight Bearing Status: Weight bearing as tolerated Additional Activity Instructions:: Posterior hip precautions ?6 weeks. Abduction pillow while sleeping. Call your doctor if your incision/area has: Continuous Slow Oozing, Sudden Increased Bleeding, Increased Pain/ Swelling, Increased Redness, Foul Smelling Discharge, Swelling at the incision site Call your doctor if you observe: Fever of 101 or Higher, Coldness, Increased Pain, Numbness or Tingling, Change in Color, Inability to urinate, Inability to have a bowel movement, Using more than one pad per hour, Shortness of breath, Dizziness, Fainting spells, Swelling in the ankles, Chest pain, Prolonged hiccoughing, Increased palpitations (irregular heartbeat), Calf discomfort, Uncontrolled pain Change Dressing in (Days):: 7 Remove Dressing in (days):: 7 Additional Dressing/Incision Instructions:: Dressing stays on for 7 total days from date of operation. Patient may shower ad mckayla. Do not submerge wound. Allergies/Adverse Reactions: Allergies No Known Allergies Allergy (Verified 10/26/17 10:15) Medications to take at Discharge aspirin 81 mg tablet,delayed release 81 mg PO QDAY 09/11/17 furosemide 20 mg tablet 20 mg PO QDAY PRN tab 09/11/17 Carvedilol [Coreg] 12.5 mg PO BID 10/26/17 Losartan Potassium [Cozaar] 25 mg PO DAILY 10/26/17 Spironolactone [Aldactone] 25 mg PO DAILY 10/26/17 Primary Care Physician: Donald Munguia MD [Primary Care Provider] - Please Follow Up With: Bob Madrid DO When: CALL [facility] FOR APPT FOR 2 WEEKS Proposed Discharge Date: 10/29/17
--- NOTE | 2017-10-28 07:34 | PN.ORTHO_ITS ---
Subjective: Some day 1 status post left hip hemiarthroplasty doing well. No over issues overnight. Currently sitting upright in bed and eating. No nausea vomiting chest pain or shortness of breath report at this time. Patient has been ambulatory around the room and up to the chair already. Patient is anxious to try to go home later today. Patient does have a sacral decubiti is being treated currently. Orthopedically stable. - Physical Exam General: Alert, Oriented x3, Cooperative, No apparent distress Musculoskeletal: - - Distally neurovascular intact. EHL anterior gastrocsoleus peroneals quads hamstrings 5 out of 5. No calf pain negative Hom[place]. Dressing in place no expanding hematoma. H&H reviewed. Vital Signs Temp Pulse Resp BP Pulse Ox 97.9 F 65 14 129/76 H 99 10/28/17 02:45 10/28/17 02:45 10/28/17 02:45 10/28/17 02:45 10/28/17 02:45 Oxygen Delivery Method Room Air Weight: 144 lb Body Mass Index (BMI) 25.4 Intake and Output for Last 24 Hours 10/26/17 10/27/17 10/28/17 23:59 23:59 23:59 Intake Total 500 / 500 1460 / 1460 1117 / 1117 Output Total 300 / 300 700 / 700 200 / 200 Balance 200 / 200 760 / 760 917 / 917 Laboratory Tests Past 24 Hrs 10/28/17 10/28/17 06:00 06:00 WBC 16.3 H RBC 3.87 L Hgb 11.7 L Hct 35.2 L MCV 91.0 MCH 30.2 MCHC 33.2 RDW 13.1 RDW Differential 43.4 Plt Count 298 MPV 10.2 Immature Gran % (Auto) 0.400 Neut % (Auto) 78.1 H Lymph % (Auto) 10.5 L [place] % (Auto) 10.0 Eos % (Auto) 0.8 Baso % (Auto) 0.2 Absolute Neuts (auto) 12.7 H Absolute Lymphs (auto) 1.70 Total Counted Not Reportable Differential Comment SCANNED Diff Path Review January Sodium 138 Potassium 3.9 Chloride 110 H Carbon Dioxide 19.0 L Anion Gap 9 BUN 18 Creatinine 0.60 Estim Creat Clear Calc 40.21 Est GFR (MDRD) Af Amer 126 Est GFR (MDRD) Non-Af 104 BUN/Creatinine Ratio 30.1 H Glucose 113 H Calcium 8.9 Assessment/Plan Assessment: After orthopedics status post left hip hemiarthroplasty for displaced midcervical femoral neck fracture. History of congestive heart failure and sacral decubiti wound. Plan: At this point time the patient is stable orthopedically. Patient will be evaluated by physical therapy today and learn more about posterior hip precautions and perform gait analysis. If the patient is safe from physical therapy and the industrial machine system technician evaluation that I am okay with discharge home. Otherwise I told the patient tomorrow would be appropriate as well. I do think the patient needs an evaluation by the wound care team to make sure the wound does not need home health wound care evaluation and/or outpatient wound care facility. Currently on aspirin 325 p.o. twice daily with Pepcid for GI prophylaxis to be used for DVT prophylaxis. Patient needs to use some form of DVT prophylaxis the next 21 days. Aspirin is cheap and easy and the patient is low risk at this time. I will continue to follow. Otherwise I can see the patient back in 2 weeks if she is approved for discharge again by the hospitalist team. Any issues please contact me.
[2017-10-28 08:00] VITALS: PULSE 72
[2017-10-28] MEDS: Losartan Potassium 25 MG Tablet PO (08:32)
[2017-10-28] MEDS: Carvedilol 12.5 MG Tablet PO (08:32)
[2017-10-28 08:35] VITALS: BP 124/67; PULSE 62; RESP 18; TEMP 37.1; O2SAT 96
[2017-10-28] MEDS: Aspirin 325 MG Tablet PO (08:35)
[2017-10-28] MEDS: Ascorbic Acid 500 MG Tablet 1000 MG PO (08:35)
[2017-10-28] MEDS: Multivitamins,Ther W-Minerals Tablet 1 TABLET PO (08:36)
[2017-10-28] MEDS: Senna/Docusate Sodium 1 Tablet 2 TABLET PO (08:36)
[2017-10-28] MEDS: Mupirocin Ointment 22gm Tube 1 APPLIC NASAL (08:36)
[2017-10-28] MEDS: Famotidine 20 MG Tablet PO (08:40)
--- NOTE | 2017-10-28 12:04 | PCM.DC.SUM ---
Discharge Date and Diagnosis Date of Admission: 10/26/17 Date of Discharge: 10/28/17 - Secondary Discharge Diagnosis Chronic Problems (Last Reviewed 09/15/17 @ 09:24 by Freddy Rose MD) History of left heart catheterization (Chronic) 07/30/2009 but report not in Centricity: reported done by Dr. Guaman Hyperlipidemia (Chronic) Hypertension (Chronic) Dilated cardiomyopathy (Chronic) Nonrheumatic mitral valve regurgitation (Chronic) Hospital Course and Treatment Consultations 10/26/17 13:45 Consult: Onc/Wound/gunnery/ordnance officer Routine Comment: Reason for Consult:: Pressure injury to Right buttocks Summary of Care Provided: Sofiya Heredia is a 77 year old F with past medical history of nonischemic cardiomyopathy with an ejection fraction of about 35% who fell at home about a week ago and started experiencing left hip pain but did not seek medical attention until today when her pain became unbearable and she came to the emergency room. X-rays demonstrated left femoral neck fracture, she is being admitted to the hospital for operative repair. Orthopedic surgeon was consulted from the emergency room. Her functional status , she continues to exercise and she works part-time. She denies any chest pain or shortness of breath at rest or with exertion. She also denies orthopnea, paroxysmal nocturnal dyspnea , pedal edema , palpitations or rapid heartbeat. She saw her set up operator tool, Dr. Rose last month who felt the patient was doing well clinically with no decompensation, he continued her medications without change and recommended six-month follow-up. Evaluated the patient we felt the patient was medically stable to undergo hip repair with no further cardiac workup. The patient underwent a successful procedure, well postoperatively, he see other related physical and outpatient therapy. The patient preferred to be discharged home to continue physical therapy at home. She was discharged in a stable condition. Instead of a conventional anticoagulant for DVT prophylaxis , she was placed on Aspirin 325 mg twice daily by orthopedics. On exam at the time of discharge; vital signs were stable. He was alert and oriented to time place and person. He did not appear to be any form of distress. S1 and S2 heard no murmur or gallop Lung exam was clear to auscultation with no adventitious sounds. Abdomen was soft nontender with normal bowel sounds. extremity exam did not reveal any edema, palpable pulses bilaterally. Neurologic exam was grossly intact. MS; post surgical Discharge Diet: No Restrictions Discharge Activity: Return to Normal Activity, May not drive while taking narcotic pain medications., May Shower, Use Walker Ice area for (Minutes): 20 Weight Bearing Status: Weight bearing as tolerated Additional Activity Instructions:: Posterior hip precautions ?6 weeks. Abduction pillow while sleeping. Call your doctor if your incision/area has: Continuous Slow Oozing, Sudden Increased Bleeding, Increased Pain/ Swelling, Increased Redness, Foul Smelling Discharge, Swelling at the incision site Call your doctor if you observe: Fever of 101 or Higher, Coldness, Increased Pain, Numbness or Tingling, Change in Color, Inability to urinate, Inability to have a bowel movement, Using more than one pad per hour, Shortness of breath, Dizziness, Fainting spells, Swelling in the ankles, Chest pain, Prolonged hiccoughing, Increased palpitations (irregular heartbeat), Calf discomfort, Uncontrolled pain Change Dressing in (Days):: 7 Remove Dressing in (days):: 7 Additional Dressing/Incision Instructions:: Dressing stays on for 7 total days from date of operation. Patient may shower ad mckayla. Do not submerge wound. Home Medications: Medications to take at Discharge furosemide 20 mg tablet 20 mg PO QDAY PRN tab 09/11/17 Carvedilol [Coreg] 12.5 mg PO BID 10/26/17 Losartan Potassium [Cozaar] 25 mg PO DAILY 10/26/17 Spironolactone [Aldactone] 25 mg PO DAILY 10/26/17 Aspirin 325 mg PO BIDCM tablet 10/28/17 Hydrocodone Bitart/Apap 5-325 [[place] 5/325] 2 tab PO Q4H PRN PRN #30 tab 10/28/17 Pantoprazole Sodium [Protonix] 40 mg PO DAILY #30 tab 10/28/17 Senna/Docusate Sodium [Senokot-S] 2 tab PO BID #20 tab 10/28/17 Following Prescrptions Were Given to Patient: Hydrocodone Bitart/Apap 5-325 [[place] 5/325] 2 tab PO Q4H PRN PRN #30 tab PRN Reason: Severe Pain (6-10/10) Pantoprazole Sodium [Protonix] 40 mg PO DAILY #30 tab Senna/Docusate Sodium [Senokot-S] 2 tab PO BID #20 tab Primary Care Physician: Donald Munguia MD [Primary Care Provider] - Please Follow Up With: Bob Madrid DO When: CALL [facility] FOR APPT FOR 2 WEEKS Disposition: Home with Home Health Patient Condition:: Good Meaningful Use Info Meaningful Use Diagnoses (Choose all that apply): None applicable Code Visit Inpatient E&M: 62592 Disch Hosp
--- NOTE | 2017-10-28 12:10 | PCM.DC ---
You will use the following diet at home:: Regular Discharge Activity: Return to Normal Activity, May not drive while taking narcotic pain medications., May Shower, Use Walker Ice area for (Minutes): 20 Weight Bearing Status: Weight bearing as tolerated Additional Activity Instructions:: Posterior hip precautions ?6 weeks. Abduction pillow while sleeping. Call your doctor if your incision/area has: Continuous Slow Oozing, Sudden Increased Bleeding, Increased Pain/ Swelling, Increased Redness, Foul Smelling Discharge, Swelling at the incision site Call your doctor if you observe: Fever of 101 or Higher, Coldness, Increased Pain, Numbness or Tingling, Change in Color, Inability to urinate, Inability to have a bowel movement, Using more than one pad per hour, Shortness of breath, Dizziness, Fainting spells, Swelling in the ankles, Chest pain, Prolonged hiccoughing, Increased palpitations (irregular heartbeat), Calf discomfort, Uncontrolled pain Change Dressing in (Days):: 7 Remove Dressing in (days):: 7 Additional Dressing/Incision Instructions:: Dressing stays on for 7 total days from date of operation. Patient may shower ad mckayla. Do not submerge wound. Allergies/Adverse Reactions: Allergies No Known Allergies Allergy (Verified 10/26/17 10:15) Medications to take at Discharge furosemide 20 mg tablet 20 mg PO QDAY PRN tab 09/11/17 Carvedilol [Coreg] 12.5 mg PO BID 10/26/17 Losartan Potassium [Cozaar] 25 mg PO DAILY 10/26/17 Spironolactone [Aldactone] 25 mg PO DAILY 10/26/17 Aspirin 325 mg PO BIDCM tablet 10/28/17 Hydrocodone Bitart/Apap 5-325 [[place] 5/325] 2 tab PO Q4H PRN PRN #30 tab 10/28/17 Pantoprazole Sodium [Protonix] 40 mg PO DAILY #30 tab 10/28/17 Senna/Docusate Sodium [Senokot-S] 2 tab PO BID #20 tab 10/28/17 The following prescriptions were given: Hydrocodone Bitart/Apap 5-325 [[place] 5/325] 2 tab PO Q4H PRN PRN #30 tab PRN Reason: Severe Pain (6-10/10) Pantoprazole Sodium [Protonix] 40 mg PO DAILY #30 tab Senna/Docusate Sodium [Senokot-S] 2 tab PO BID #20 tab Primary Care Physician: Donald Munguia MD [Primary Care Provider] - Please Follow Up With: Bob Madrid DO When: CALL [facility] FOR APPT FOR 2 WEEKS Proposed Discharge Date: 10/29/17
--- NOTE | 2017-10-28 12:27 | CASEMGMT ---
CHANO FOFANA in to discuss discharge plans with patient. Patient wishes to discharge home with home health for therapy for few weeks and then transition to outpatient therapy. Patient states that her first choice is [facility]. Referral made to [facility]. CHANO FOFANA will continue to follow this patient and plan for a safe.
[2017-10-28 13:00] VITALS: BP 97/52; PULSE 67; RESP 16; RESP 18; TEMP 36.9; O2SAT 98
[2017-10-28] MEDS: HYDROcodone Bitartrate/Apap 5/325 Tablet PO (13:53)
--- NOTE | 2017-10-28 14:00 | CASEMGMT ---
CHANO FOFANA received update that [facility] is able to accept the patient. CHANO FOFANA faxed C-9 to [facility] and copy provided to [facility]. CHANO FOFANA will continue to follow this patient and plan for a safe discharge.
[2017-10-29 12:43] LABS: Pathologist Review Reviewed
== END 2017-10-28 14:50 | disposition home health service (06) | DRG 470 ==
LOC: ED 12:31 → MS3 12:35
PROVIDERS: Orthopaedic Surgery; Admitting Provider Internal Medicine; Emergency Provider Emergency Medicine; Family Provider Family Medicine; PCP Family Medicine; Visit Provider Internal Medicine
PROC: 0SRS0JA Replacement of Left Hip Joint, Femoral Surface with Synthetic Substitute, Uncemented, Open Approach (ICD-10-PCS; CPT 27125; principal; 2017-10-27 09:25)
DX: S72.032A Displaced midcervical fracture of left femur, initial encounter for closed fracture (principal); L89.152 Pressure ulcer of sacral region, stage 2; I42.0 Dilated cardiomyopathy; I34.0 Nonrheumatic mitral (valve) insufficiency; E78.5 Hyperlipidemia, unspecified; W01.0XXA Fall on same level from slipping, tripping and stumbling without subsequent striking against object, initial encounter
CPT/HCPCS: 36415; 71045; 73502; 80048; 81001; 85025; 85610; 87641; 88305; 88307; 88311; 93005; 93306; 97116; 97162; 97165; 99284; J7050; J7120; A4216; J2405

== ENCOUNTER → 2017-12-09 08:16 | Outpatient (CLI) | payer MEDICARE, SELFPAY ==
--- NOTE | 2017-12-09 08:19 | RAD_ITS ---
STUDY: X-RAY - PELVIS AND LEFT HIP REASON FOR EXAM: Female, 77 years old. Postop TECHNIQUE: Radiological exam, hip, unilateral, with pelvis when performed; 2 or 3 views. COMPARISON: 10/27/2017. FINDINGS: There is a non-specific bowel gas pattern. Normal visualized soft tissue structures. Normal bilateral iliac wings, sacroiliac joints and visualized sacrum. Normal bilateral superior and inferior pubic rami. Normal pubic symphysis. Normal bilateral ischial tuberosities. Left hip prosthesis in place without loosening. No fracture. RAD/Hip 1 view with Pelvis IMPRESSION: Left hip prosthesis in place. No fracture. Electronically Signed: Celestino Park DO at 23:59 EDT , Service support ,
== END ==
PROVIDERS: Family Provider Family Medicine; PCP Family Medicine; Visit Provider Orthopaedic Surgery
DX: S72.002A Fracture of unspecified part of neck of left femur, initial encounter for closed fracture (principal)
CPT/HCPCS: 73501

== ENCOUNTER → 2017-12-30 09:20 | Outpatient (CLI) | payer MEDICARE, SELFPAY ==
--- NOTE | 2017-12-30 09:21 | RAD_ITS ---
STUDY: X-RAY - PELVIS AND LEFT HIP REASON FOR EXAM: Female, 77 years old. hip pain post op, doctor requested AP hip only TECHNIQUE: Radiological exam, hip, unilateral, with pelvis when performed; 1 view COMPARISON: December 09, 2017 FINDINGS: There is a non-specific bowel gas pattern. Normal visualized soft tissue structures. Degenerative findings of the left sacroiliac joint. There are atherosclerotic vascular calcifications. Normal bilateral superior and inferior pubic rami. Normal pubic symphysis. Normal bilateral ischial tuberosities. Total left hip arthroplasty. Prosthetic acetabulum. Normal hip joint. Hardware appears intact. RAD/Hip 1 view with Pelvis IMPRESSION: No change in the appearance of the left prosthetic hip. Electronically Signed: Cornelio Slaughter MD at 17:06 EDT , Service support ,
== END ==
PROVIDERS: Family Provider Family Medicine; PCP Family Medicine; Visit Provider Orthopaedic Surgery
DX: S72.002A Fracture of unspecified part of neck of left femur, initial encounter for closed fracture (principal); Z96.642 Presence of left artificial hip joint
CPT/HCPCS: 73501

== ENCOUNTER → 2018-11-18 08:25 | Outpatient (CLI) | payer OTHER, MEDICARE, SELFPAY ==
[2018-11-18 08:21] VITALS: BMI 26.4
--- NOTE | 2018-11-18 08:28 | RAD_ITS ---
STUDY: X-RAY - PELVIS AND LEFT HIP REASON FOR EXAM: Surgery 1 year ago with recent painful left hip. TECHNIQUE: 2 views of the pelvis and hip. COMPARISON: Radiographs 12/30/2017. FINDINGS: There is vascular calcification. There are degenerative changes of the lumbar spine. There is mild enthesopathy of the iliac wings bilaterally. Normal bilateral superior and inferior pubic rami. Normal pubic symphysis. Normal bilateral ischial tuberosities. There is a left hip arthroplasty with interval development of a radiolucency adjacent to the distal femoral stem measuring only 1 mm in thickness. RAD/HIP, UNI W/ Pelvis 2-3 Views IMPRESSION: Left hip arthroplasty with radiolucency adjacent to the distal femoral stem measuring only 1 mm. Electronically Signed: Rene Martin MD at 13:50 EDT Tel , Service support ,
[2018-11-18 10:08] LABS: Absolute Lymphocyte Count 1.53 X10^3/ul (0.83-4.51); Absolute Neutrophil Count 7.8 X10^3/uL (2.0-7.7); Basophil# 0.07 X10^3/uL; Basophil% 0.7 % (0-1); Eosinophil# 0.49 X10^3/uL; Eosinophils% 4.6 % (0-5); Hematocrit 40.7 % (37-47); Hemoglobin 12.5 g/dl (12.0-15.0); Lymphocyte # 1.53 X10^3/ul (4.0); Lymphocyte % 14.5 % (19-41); Mean Corp Hgb Conc 30.7 g/gl (32-36); Mean Corpuscular Hgb 27.8 pg (27.0-32.0); Mean Corpuscular Volume 90.4 fL (81-99); Mean Platelet Vol. 10.5 fl (6.2-12.0); Monocyte# 0.67 X10^3/uL; Monocyte% 6.3 % (0-10); Neutrophil # 7.78 X10^3/uL (2.7-7.7); Neutrophil % 73.7 % (47-70); Platelet Count 304 K/mm3 (150-450); RBC Distribution Width CV 14.9 % (11.6-14.6); RBC Distribution Width SD 48.7 fl (35.1-43.9); White Blood Count 10.6 K/mm3 (4.4-11.0)
[2018-11-18 10:13] LABS: Erythrocyte Sedimentation Rate 12 mm/hr (0-30)
[2018-11-18 10:15] LABS: POSITIVE COUNT NO; POSITIVE DIFFERENTIAL NO; POSITIVE MORPHOLOGY NO
[2018-11-18 10:20] LABS: CRP 9.57 mg/L (0.0-3.0)
== END ==
PROVIDERS: Family Provider Family Medicine; PCP Family Medicine; Referring Provider Orthopaedic Surgery; Visit Provider Orthopaedic Surgery
DX: S72.03 Midcervical fracture of femur (principal); M25.552 Pain in left hip; Z96.642 Presence of left artificial hip joint
CPT/HCPCS: 36415; 73502; 85025; 85652; 86140

== ENCOUNTER → 2019-10-05 09:51 | Outpatient (CLI) | payer MEDICARE, SELFPAY ==
[2019-09-28 09:14] VITALS: BMI 26.4
[2019-10-05 11:02] LABS: Anion Gap 6 (5-15); BUN 21 mg/dL (7-18); BUN/Creat Ratio 19.8 RATIO (10-20); Calcium,Total 9.6 mg/dL (8.5-10.1); Chloride 112 mmol/L (98-107); Creatinine, Serum 1.06 mg/dL (0.55-1.02); EST Glomerular Filtration Rate 53 mL/min (>60); Est Glom Filt Rate - Afr Amer 65 mL/min (>60); Glucose 109 mg/dL (74-106); Potassium 3.8 mmol/L (3.5-5.1); Sodium Level 145 mmol/L (136-145)
== END ==
PROVIDERS: PCP Family Medicine; Referring Provider Nurse Practitioner Family; Visit Provider Nurse Practitioner Family
DX: I10 Essential (primary) hypertension (principal); I42.0 Dilated cardiomyopathy
CPT/HCPCS: 36415; 80048

== ENCOUNTER → 2019-11-09 09:26 | Outpatient (CLI) | payer MEDICARE, SELFPAY ==
[2019-11-09 09:22] VITALS: BMI 26.4
--- NOTE | 2019-11-09 09:29 | RAD_ITS ---
HISTORY: PAIN ADDITIONAL HISTORY: None provided. TECHNIQUE: Left hip 2 views with AP pelvis Number of images including paperwork: 3 COMPARISON: None FINDINGS: BONES: No acute fracture. JOINTS: No subluxation. Left hip prosthesis. Mild degenerative changes of the right hip. Degenerative changes in the visualized spine. SOFT TISSUES: No distinct foreign body. RAD/HIP, UNI W/ Pelvis 2-3 Views IMPRESSION: No acute osseous abnormality. Degenerative and postoperative changes. at 2257 Reported and signed by: Gauri Stern MD Electronically Signed: Gauri Stern MD at 22:57 EST Tel , Service support ,
--- NOTE | 2019-11-09 09:29 | RAD_ITS ---
HISTORY: PAIN TECHNIQUE: Lumbar spine 6 views including lateral views with flexion and extension Number of images including paperwork: 6 COMPARISON: None FINDINGS: VERTEBRAE: No acute fracture. Mineralization appears decreased. VERTEBRAL ALIGNMENT: No traumatic subluxation. No instability seen on flexion and extension images. Approximate 20 of right convex lumbar scoliosis. DISKS AND JOINTS: Multilevel discogenic degenerative changes, severe at L4-5 and L5-S1. Facet arthropathy. Left hip prosthesis partially visible. SOFT TISSUES: Unremarkable paraspinous soft tissues. RAD/L/S Spine w Bend Min 6 Vw IMPRESSION: 1. No acute findings. 2. Lumbar spondylosis. at 2228 Reported and signed by: Gauri Stern MD Electronically Signed: Gauri Stern MD at 22:28 EST Tel , Service support ,
== END ==
PROVIDERS: PCP Family Medicine; Referring Provider Orthopaedic Surgery; Visit Provider Orthopaedic Surgery
DX: M25.552 Pain in left hip (principal); M79.605 Pain in left leg
CPT/HCPCS: 72114; 73502

== ENCOUNTER → 2020-02-16 10:33 | Outpatient (CLI) | payer MEDICARE, SELFPAY ==
[2019-11-09 09:22] VITALS: BMI 26.4
[2020-02-16 11:02] LABS: Erythrocyte Sedimentation Rate 10 mm/hr (0-30)
[2020-02-16 11:04] LABS: Absolute Lymphocyte Count 1.45 X10^3/uL (0.83-4.51); Absolute Neutrophil Count 4.4 X10^3/uL (2.0-7.7); Basophil# 0.07 X10^3/uL; Basophil% 1.1 % (0-1); Eosinophil# 0.22 X10^3/uL; Eosinophils% 3.3 % (0-5); Hematocrit 37.6 % (37-47); Hemoglobin 11.5 g/dL (12.0-15.0); Lymphocyte # 1.45 X10^3/ul (4.0); Lymphocyte % 21.8 % (19-41); Mean Corp Hgb Conc 30.6 g/dL (32-36); Mean Corpuscular Hgb 28.2 pg (27.0-32.0); Mean Corpuscular Volume 92.2 fL (81-99); Mean Platelet Vol. 10.8 fl (6.2-12.0); Monocyte# 0.54 X10^3/uL; Monocyte% 8.1 % (0-10); NRBC Flagged by Analyzer 0 % (0-5); Neutrophil # 4.35 X10^3/uL (2.7-7.7); Neutrophil % 65.2 % (47-70); Platelet Count 230 K/mm3 (150-450); RBC Distribution Width CV 14.7 % (11.6-14.6); RBC Distribution Width SD 49.9 fl (35.1-43.9); Red Blood Count 4.08 M/mm3 (4.2-5.4); White Blood Count 6.7 K/mm3 (4.4-11.0)
[2020-02-16 13:03] LABS: CRP 7.03 mg/L (0.0-3.0)
== END ==
PROVIDERS: PCP Family Medicine; Referring Provider Specialist; Visit Provider Specialist
DX: Z96.642 Presence of left artificial hip joint (principal)
CPT/HCPCS: 36415; 85025; 85652; 86140

== ENCOUNTER 2020-03-21 09:43 | Observation (INO) | payer MEDICARE, SELFPAY ==
[2019-11-09 09:22] VITALS: BMI 26.4
[2020-03-21] VITALS (17 sets, daily range): BP systolic 100–143; BP diastolic 59–99; PULSE 75–142; RESP 14–23; TEMP 36.6–36.8; O2SAT 93–97; BMI 22.3; BMI 22.1; BMI 22.2
--- NOTE | 2020-03-21 09:49 | ED.RN ---
pt initial heart rate in triage at 158. ekg ordered
--- NOTE | 2020-03-21 10:09 | EKG12_ITS ---
Test Reason : Blood Pressure : / mmHG Vent. Rate : 146 BPM Atrial Rate : 131 BPM P-R Int : 000 ms QRS Dur : 122 ms QT Int : 278 ms P-R-T Axes : 000 -83 072 degrees QTc Int : 433 ms Atrial fibrillation with rapid ventricular response with premature ventricular or aberrantly conducte d complexes Left axis deviation Non-specific intra-ventricular conduction delay Abnormal ECG Confirmed by EDMOND BRUNSON, JAS ([id number]), staff editor CHELSI TABOR ([id number]) on 03/26/2020 11:05:10 AM Referred By: SHANIQUE Confirmed By:JAS PRUITT MD
[2020-03-21 10:47] LABS: Absolute Lymphocyte Count 1.57 X10^3/uL (0.83-4.51); Basophil# 0.06 X10^3/uL; Basophil% 0.5 % (0-1); Eosinophil# 0.08 X10^3/uL; Eosinophils% 0.6 % (0-5); Hemoglobin 12.8 g/dL (12.0-15.0); Lymphocyte # 1.57 X10^3/ul (4.0); Lymphocyte % 12.4 % (19-41); Mean Corpuscular Volume 87.5 fL (81-99); Mean Platelet Vol. 10.9 fl (6.2-12.0); Monocyte# 0.82 X10^3/uL; Monocyte% 6.5 % (0-10); NRBC Flagged by Analyzer 0 % (0-5); Neutrophil # 10.04 X10^3/uL (2.7-7.7); Neutrophil % 79.5 % (47-70); Platelet Count 400 K/mm3 (150-450); RBC Distribution Width CV 15.5 % (11.6-14.6); RBC Distribution Width SD 49.3 fl (35.1-43.9); Red Blood Count 4.57 M/mm3 (4.2-5.4); White Blood Count 12.6 K/mm3 (4.4-11.0)
[2020-03-21] MEDS: Aspirin 81 MG TAB.CHEW 324 MG PO (10:49)
[2020-03-21] MEDS: 0.9% Normal Saline 1,000 ML 150 ML IV (10:49)
[2020-03-21] MEDS: dilTIAZem 25 MG/5 ML Vial 20 MG IV BOLUS (10:49)
[2020-03-21 10:58] LABS: International Normalized Ratio 1.2; Partial Thromboplast Time 28.7 Seconds (24.1-36.2); Prothrombin Time (Protime)PT. 14.3 SECONDS (11.7-14.9)
[2020-03-21] MEDS: dilTIAZem 25 MG/5 ML Vial IV BOLUS (11:08)
[2020-03-21 11:10] LABS: Anion Gap 9 (5-15); BUN 24 mg/dL (7-18); BUN/Creat Ratio 26.5 RATIO (10-20); Calcium,Total 9.8 mg/dL (8.5-10.1); Chloride 104 mmol/L (98-107); EST Glomerular Filtration Rate 64 mL/min (>60); Est Glom Filt Rate - Afr Amer 78 mL/min (>60); Glucose 163 mg/dL (74-106); Magnesium 2.5 mg/dL (1.6-2.6); Potassium 4.1 mmol/L (3.5-5.1); Sodium Level 138 mmol/L (136-145); Thyroid Stim Hormone (TSH) 3.03 uIU/mL (0.358-3.74)
--- NOTE | 2020-03-21 11:30 | RAD_ITS ---
STUDY: X-RAY CHEST REASON FOR EXAM: Female, 79 years old. AFIB DIARRHEA TECHNIQUE: Single AP portable view of the chest. COMPARISON: Comparison is made with prior study dated October 26, 2017. FINDINGS: EKG electrodes are seen. Mild degree of vascular congestion. Mild degree of increased markings at the lung bases suggestive of atelectasis. Blunting of both costophrenic angles. There is moderate cardiac enlargement. Normal mediastinum and laura. Normal visualized pulmonary arteries. There is atherosclerotic calcification of the aortic arch with tortuosity. There are diffuse degenerative changes of the visualized thoracic spine. Normal visualized ribs, clavicles, and shoulders. There is no demonstrated abnormality of the visualized soft tissue structures of the upper abdomen. RAD/Chest 1 View (Portable) IMPRESSION: Thyromegaly and mild CHF. Small bilateral effusions with bibasilar atelectasis. Electronically Signed: Basim Pierson, at 12:19 EDT , Service support ,
--- NOTE | 2020-03-21 12:45 | HP.PCM_ITS ---
Problem List (1) A. fib with RVR Status: Acute (2) History of left heart catheterization Status: Chronic Comment: 07/30/2009 but report not in Centricity: reported done by Dr. Guaman (3) Hyperlipidemia Status: Chronic (4) Hypertension Status: Chronic Qualifiers: Hypertension type: unspecified Qualified Code(s): I10 - Essential (primary) hypertension (5) Dilated cardiomyopathy Status: Chronic (6) Nonrheumatic mitral valve regurgitation Status: Chronic History of Present Illness Date of Admission: 03/21/20 Chief Complaint: Diarrhea for few days, A. fib with RVR in triage. The patient is a 79 year old F with history of dilated cardiomyopathy, EF 35 to 40% as per echo in October 2017 came to ED with diarrhea for couple days. She said it was more stress related about 1 to 2 times for couple days which has resolved now. In ED, she was found, heart rate 142 with A. fib with RVR on monitor. EKG shows A. fib with RVR with PVC at 146/min with LAD. Previous EKG of October 2017 shows normal sinus rhythm at 67 bpm with LAD LBBB. Patient was given Cardizem 25 mg IV bolus and then 20 mg IV bolus and heart rate is controlled. Currently heart rate is A. fib about 80/min, blood pressure 107/70. She denies dizziness, flutter waves, syncope or previous history of A. fib. No chest pain or shortness of breath. Denies any recent antibiotic intake in the last 6 months. No urinary tract symptoms. No hematemesis, melena or hematochezia. [] Past Medical History Past Medical History (Chronic Problems): Chronic Problems (Last Reviewed 09/28/19 @ 08:50 by HENRI Loja) History of left heart catheterization (Chronic) 07/30/2009 but report not in Centricity: reported done by Dr. Guaman Hyperlipidemia (Chronic) Hypertension (Chronic) Dilated cardiomyopathy (Chronic) Nonrheumatic mitral valve regurgitation (Chronic) Medical History: Medical History (Last Reviewed 09/28/19 @ 08:50 by HENRI Loja) Hyperlipidemia (Chronic) E78.5 Hypertension (Chronic) I10 Dilated cardiomyopathy (Chronic) I42.0 Nonrheumatic mitral valve regurgitation (Chronic) I34.0 Allergies No Known Allergies Allergy (Verified 03/21/20 09:46) Home Medications: Ambulatory Orders Medication Instructions Recorded furosemide 20 mg tablet 20 mg PO PRN PRN tab 09/11/17 aspirin 81 mg tablet,delayed 81 mg PO QDAY 03/19/18 release losartan 25 mg tablet 25 mg PO DAILY #90 tab 11/19/18 Carvedilol 12.5 mg PO DAILY 03/21/20 Surgical History: Surgical History (Last Reviewed 09/28/19 @ 08:50 by Ramo Villalpando, [employer]-C) History of left heart catheterization (Chronic) Z98.890 07/30/2009 but report not in Centricity: reported done by Dr. Guaman History of hemiarthroplasty of left hip Z96.642 10/27/17 Smoking Status: Former smoker Alcohol: None Drugs: None - *Family History Paternal Family History: Family History (Last Reviewed 09/28/19 @ 08:50 by Ramo Villalpando, ROCHELLE-C) Father CAD (coronary artery disease) Review of Systems Constitutional: Denies: Chills, Fever, Weight Change HEENT: Denies: Head Aches, Sinus Congestion, Sinus Drainage Cardiovascular: Reports: Edema - MILD Edema in ankles. Denies: Chest Pain, Chest Pressure, Chest Tightness, Palpitations Respiratory: Denies: Cough, Shortness of breath at rest, Sputum production Gastrointestinal: Reports: Diarrhea. Denies: Abdominal Pain, Constipation, Nausea, Vomiting Genitourinary: Denies: Dysuria, Frequency, Urgency Musculoskeletal: Reports: Back Pain, Joint Pain, Leg Pain. Denies: Joint Tenderness Skin: Denies: Rash, Wounds Neurological: Reports: Balance problems, Incoordination. Denies: Focal weakness, Numbness, Tingling Psychiatric: Denies: Anxiety, Depression, Homicidal Ideations, Suicidal Ideations Hematologic/ Lymphatic: Denies: Easy Bruising, Easy Bleeding VTE Information - Inpt Only VTE Present on Admission: No VTE Mechan Device Prophylaxis: None VTE Pharm Prophylaxis ordered?: Yes Patient Problems: Active and Suspected Problems (Last Reviewed 09/28/19 @ 08:50 by Ramo Villalpando, N P-C) A. fib with RVR (Acute) - Physical Exam Vitals/I&O's: Vital Signs Temp Pulse Resp BP Pulse Ox 97.9 F 80 20 H 119/99 H 95 03/21/20 09:44 03/21/20 12:22 03/21/20 12:22 03/21/20 12:22 03/21/20 12:22 Oxygen Delivery Method Room Air Weight: 130 lb Body Mass Index (BMI) 22.3 General: Alert, Oriented x3, Cooperative HEENT: Atraumatic, PERRLA, EOMI, Normocephalic Neck: Supple, No JVD, Negative Carotid Bruits Lungs: Clear to auscultation, No rhonchi, No wheeze, No rales, Diminished Cardiovascular: Normal S1, Normal S2, No murmurs, Irregular Rate Abdomen: Bowel Sounds Present, Soft, Non Tender, Non-Distended Extremities: Capillary Refill Less than 3 Seconds, Edema - Mild ankle edema Skin: No rashes, No breakdown Musculoskeletal: No Tenderness to Palpation of Joints or Extremities, Arthritic Changes, - - Left hip hemiarthroplasty Neurological: Cranial nerves II-XII grossly intact, Deep Tendon Reflexes 2+/4 and Symmetrical, Neuro grossly intact Psych/Mental Status: Normal Affect, Appropriate Laboratory Results 03/21/20 10:38: WBC 12.6 H, RBC 4.57, Hgb 12.8, Hct 40.0, MCV 87.5, MCH 28.0, MCHC 32.0, RDW Std Deviation 49.3 H, RDW Coeff of [place] 15.5 H, Plt Count 400, MPV 10.9, Immature Gran % (Auto) 0.500, Neut % (Auto) 79.5 H, Lymph % (Auto) 12.4 L , [place] % (Auto) 6.5, Eos % (Auto) 0.6, Baso % (Auto) 0.5, Absolute Neuts (auto) 10.0 H, Absolute Lymphs (auto) 1.57, Nucleated RBC % 0 03/21/20 10:38: Sodium 138, Potassium 4.1, Chloride 104, Carbon Dioxide 25.0, Anion Gap 9, BUN 24 H, Creatinine 0.90, Estim Creat Clear Calc 45.20, Est GFR (MDRD) Af Amer 78, Est GFR (MDRD) Non-Af 64, BUN/Creatinine Ratio 26.5 H, Glucose 163 H, Calcium 9.8, Magnesium 2.5, Troponin I 0.037, TSH 3.03 03/21/20 10:38: PT 14.3, INR 1.2, APTT 28.7 Current Medications Sodium Chloride () 1,000 mls @ 150 mls/hr IV .Q6H40M [facility] Last Admin: 03/21/20 10:49 Dose: 150 mls/hr Documented by: Assessment/Plan All Active Problems (Last Reviewed 09/28/19 @ 08:50 by Ramo Villalpando NP-C) A. fib with RVR (Acute) The patient is a 79 year old F with history of dilated cardiomyopathy, EF 35 to 40% as per echo in October 2017 came to ED with diarrhea for couple days. In ED, she was found, heart rate 142 with A. fib with RVR on monitor. EKG shows A. fib with RVR with PVC at 146/min with LAD. Previous EKG of October 2017 shows normal sinus rhythm at 67 bpm with LAD LBBB. Patient was given Cardizem 25 mg IV bolus and then 20 mg IV bolus and heart rate is controlled. 1. A. fib with RVR: Heart rate is controlled. Still in A. fib. Coreg dose increased to 12.5 mg twice daily. Risk and benefit of anticoagulant discussed with the patient in presence of patient's daughter, Ms. Shahrzad Xiong and agreed upon Eliquis. 2. Degenerative joint disease, status post left hemiarthroplasty after a fracture and SI joint arthritis: Patient follows Dr. Roy and pain management Dr. Keen. Most probably she is going to have joint injection in about 2 weeks. She was advised to inform Dr. Keen to discontinue Eliquis 48 to 72 hours prior to procedure and resume about 24 to 48 hours. 3. Isolated diarrhea probably irritable bowel or stress related: Resolved. Stool for enteric bacteriology and C. difficile ordered by ER physician. No antibiotic intake in the last 6 months. Stool for occult blood and stool leukocytes ordered 4. Nonischemic dilated cardiomyopathy, chronic systolic heart failure: Patient had 2D echo in October 2017 reported as Interpretation Summary Mildly dilated left ventricle. The estimated ejection fraction is 35-40 %. There is moderate to severe global hypokinesis of the left ventricle. Stage 1 diastolic dysfunction. Trivial mitral valve insufficiency. Trivial tricuspid valve insufficiency. Right ventricular systolic pressure estimated to be 35 mmHg. Patient also had cardiac cath in the past probably outside hospital and patient self-reported no major coronary abnormality 5. Other comorbidities include hypertension, dyslipidemia: Home medication reconciliation done. Living will/advanced directive/end of life care: Patient does not have living will or advanced directive. After discussion of procedures involved with full code, DNR CC arrest and DNR CC, the patient opted for full code. Patient does want artificial life support including intubation, tube feed, ventilator and/chest compression, central venous catheter, vasopressor and DC shock if needed Total time spent in [id number] encounter in discussion of advanced directive 16 minutes OBSV E&M: 00825 Initial observation care L3 Procedures: 08516 Advncd Care Plan 30 Min
--- NOTE | 2020-03-21 12:53 | ED.VISSUMM ---
- ER Visit Summary Date of Service: 03/21/20 Chief Complaint: Diarrhea History of Present Illness: The patient is a [address] Milton Lujan. She reports she has not felt well for the past 3 days. She reports that she has been short of breath. This is unchanged with exertion or laying flat. However, she reports that she has not been sleeping well and has had a poor appetite. Patient reports that she has diarrhea that began yesterday. She had 3-4 episodes. No blood in her stools or black tarry stools. She denies any abdominal pain. No nausea or vomiting. Physical Examination: Vitals: Stable. Afebrile. General: Well-nourished and well-developed. Head: Normocephalic atraumatic. Neck: Supple, no lymphadenopathy. No JVD. Nontender. Cardiovascular: Tachycardic irregular rhythm. No murmurs. Respiratory: No respiratory distress. Clear to auscultation bilaterally. Abdominal: Soft, nontender, nondistended, normal bowel sounds. No guarding, rebound, or peritoneal signs. Back: Nontender. Extremities: Nontender, no edema. Skin: Normal color, no rash. Neurologic: Alert and oriented ?3. Cranial nerves II through XII are intact. Normal strength and sensation. Psych: Normal affect. Test Results: EKG is A. fib at 146. Initial troponin 0 0.037. INR is 1.2 with a PTT of 20.7. Magnesium is 2.5. TSH is 3.03. Chem-7 shows a glucose 163 and BUN 24. CBC shows a white count of 12.6 with 80 segs neutrophils and 12 lymphocytes. Clinical Impression(s) from Imaging Studies Chest X-Ray 03/21/20 11:30 IMPRESSION: Thyromegaly and mild CHF. Small bilateral effusions with bibasilar atelectasis. Electronically Signed: Basim Pierson, at 12:19 EDT , Service support , Emergency Department Course and Treatment: Patient was given aspirin p.o. She was given Cardizem IV with improvement in her heart rate. Is now down to the 90s. Treatment Plan: Patient was discussed with Dr. Cox. She will be admitted to the hospital for further ablation treatment. Disposition: Admitted in improved condition. Impression: 1. New onset atrial fibrillation with RVR. 2. CHF. 3. Bilateral pleural effusions. 4. Critical care time 30 minutes. This note was generated with [employer] dictation software. It may contain incorrect words, spelling, and punctuation that were not noted in review of the chart prior to signing ED Disposition - Plan for ED Patient: Disposition: Acute Care Hospital [facility]
--- NOTE | 2020-03-21 12:57 | NURSING ---
PCU DMITRIY OBS ATRIAL FIBRILLATION WITH RVR
--- NOTE | 2020-03-21 14:09 | ECHOD_ITS ---
Reason For Study: Afib w/RVR Procedure This was a 2D Doppler, Color Flow transthoracic echocardiogram. Contrast injection was performed. Exam performed portable in patient room. Left Ventricle Severely dilated left ventricle. The estimated ejection fraction is 27 %. Stage 2 diastolic dysfunction. There is moderate to severe global hypokinesis of the left ventricle. Right Ventricle Normal RV size. Normal systolic function. Atria The left atrium is moderately enlarged. Normal right atrium. Bubble contrast study negative for right to left interatrial shunt. Mitral Valve Mild focal mitral valve calcification. Moderate (2+) eccentric mitral valve insufficiency. Tricuspid Valve Normal tricuspid valve. Mild to moderate (1-2+) tricuspid valve insufficiency. Pulmonary artery systolic pressure is 37 mmHg. Aortic Valve Trisinus/trileaflet aortic valve. Mild focal aortic valve calcification. Great Vessels Normal aortic root. The pulmonary artery is normal size. Normal inferior vena cava. Pericardium/Pleural No pericardial effusion. Medication Performed a rapid injection of agitated mix of 9 cc saline and 1cc air to assess for atrial septal defect. MMode/2D Measurements & Calculations LVIDd: 6.7 cm IVSd: 1.2 cm LA dimension: 4.9 cm LVIDs: 6.3 cm LVPWd: 0.77 cm FS: 6.4 % LAV(MOD-sp4): 123.0 ml LA A4 area: 30.0 cm2 RA A4 area: 12.6 cm2 Time Measurements MV dec time: 0.17 sec Doppler Measurements & Calculations MV E max ricardo: 140.4 cm/sec MV V2 max: 177.7 cm/sec MV P1/2t max ricardo: 177.7 cm/sec MV A max ricardo: 72.7 cm/sec MV max P.6 mmHg MV P1/2t: 70.6 msec MV E/A: 1.9 MV V2 mean: 92.5 cm/sec MV dec slope: 737.4 cm/sec2 MV mean P.2 mmHg MVA(P1/2t): 3.1 cm2 MV V2 VTI: 34.8 cm Ao V2 max: 104.4 cm/sec LV V1 max: 88.2 cm/sec MR max ricardo: 507.6 cm/sec Ao max P.4 mmHg LV V1 max P.1 mmHg MR max P.0 mmHg MR mean ricardo: 356.9 cm/sec MR mean P.7 mmHg MR VTI: 152.5 cm PA V2 max: 70.6 cm/sec PI end-d ricardo: 133.0 cm/sec TR max ricardo: 287.0 cm/sec TR max P.1 mmHg Interpretation Summary Severely dilated left ventricle. The estimated ejection fraction is 27 %. There is moderate to severe global hypokinesis of the left ventricle. Stage 2 diastolic dysfunction. Bubble contrast study negative for right to left interatrial shunt. The left atrium is moderately enlarged. Compared to previous study, the left ventricular systolic function has worsened.. Ordering Physician: Isak Cox Referring Physician: Donald Munguia Performed By: Daniel Zhao RCS
[2020-03-21 15:01] LABS: AST(SGOT) 22 U/L (15-37); Alanine Aminotransfer ALT/SGPT 21 U/L (13-56); Albumin, Serum 3.2 g/dL (3.2-5.0); Alkaline Phosphatase 110 U/L (45-117); Bilirubin, Direct 0.31 mg/dL (0.00-0.30); Globulin 3.8 g/dL (2.2-4.2); Magnesium 2.5 mg/dL (1.6-2.6)
[2020-03-21] MEDS: APIXABAN 5 MG TABLET PO ×2 (15:31→20:18)
[2020-03-21] MEDS: Carvedilol 12.5 MG Tablet PO ×2 (15:31→20:18)
--- NOTE | 2020-03-21 23:32 | NURSING ---
PC from pt's daughter, Shahrzad, for update. Updated Shahrzad on pt, and inquired if pt has been more forgetful at home as this nurse has noticed that pt has been forgetful here. Pt asked same two questions multiple times in a span of 15 minutes. Shahrzad states that yes, she has noticed that pt has seemed to have more and more frequent episode of forgetfulness, and she would like to have the doctor made aware of this and inquiring if there is any kind of evaluation we can do while she is here. Advised that this nurse would pass along to dayshift and make sure MD was aware, advised not sure how process works, and may need followup with PCP when pt is discharged. Shahrzad states that as much as we can she would like to keep from discussing this in earshot or with the pt for right now, unless an evaluation needs to be done. She states pt does not seem to notice that anything is different, and when asked about it becomes very difficult and upset. Advised will do our best to follow these wishes, but may need to be addressed at some point. Shahrzad voiced understanding. Princess RN
[2020-03-22 02:05] VITALS: BP 117/62; PULSE 71; RESP 18; TEMP 36.6; O2SAT 93
[2020-03-22 02:59] VITALS: PULSE 80
--- NOTE | 2020-03-22 05:22 | EKG12_ITS ---
Test Reason : RHYTHM CHANGE Blood Pressure : / mmHG Vent. Rate : 080 BPM Atrial Rate : 080 BPM P-R Int : 116 ms QRS Dur : 118 ms QT Int : 434 ms P-R-T Axes : 259 -88 060 degrees QTc Int : 500 ms Unusual P axis and short OH, probable junctional tachycardia with occasional and consecutive Prematur e ventricular complexes and Premature atrial complexes Left axis deviation Incomplete left bundle branch block Prolonged QT Abnormal ECG When compared with ECG of 21-MAR-2020 10:00, MANUAL COMPARISON REQUIRED, DATA IS UNCONFIRMED Confirmed by EDMOND BRUNSON, JAS ([id number]), construction cost estimator CHELSI TABOR ([id number]) on 03/26/2020 11:12:20 AM Referred By: DMITRIY Confirmed By:JAS PRUITT MD
[2020-03-22 06:06] LABS: Absolute Lymphocyte Count 1.09 X10^3/uL (0.83-4.51); Absolute Neutrophil Count 6.4 X10^3/uL (2.0-7.7); Basophil% 1.2 % (0-1); Eosinophil# 0.44 X10^3/uL; Eosinophils% 5.1 % (0-5); Hematocrit 36.5 % (37-47); Hemoglobin 11.3 g/dL (12.0-15.0); Lymphocyte # 1.09 X10^3/ul (4.0); Lymphocyte % 12.6 % (19-41); Mean Corpuscular Hgb 27.9 pg (27.0-32.0); Mean Corpuscular Volume 90.1 fL (81-99); Mean Platelet Vol. 10.7 fl (6.2-12.0); Monocyte# 0.55 X10^3/uL; Monocyte% 6.4 % (0-10); NRBC Flagged by Analyzer 0 % (0-5); Neutrophil # 6.43 X10^3/uL (2.7-7.7); Neutrophil % 74.5 % (47-70); Platelet Count 312 K/mm3 (150-450); RBC Distribution Width CV 15.7 % (11.6-14.6); RBC Distribution Width SD 51.1 fl (35.1-43.9); Red Blood Count 4.05 M/mm3 (4.2-5.4); White Blood Count 8.6 K/mm3 (4.4-11.0)
[2020-03-22 06:52] LABS: Anion Gap 7 (5-15); BUN 19 mg/dL (7-18); BUN/Creat Ratio 24.5 RATIO (10-20); Calcium,Total 9.3 mg/dL (8.5-10.1); Chloride 110 mmol/L (98-107); Cholesterol 131 mg/dL (200); Creatinine, Serum 0.78 mg/dL (0.55-1.02); EST Glomerular Filtration Rate 76 mL/min (>60); Est Glom Filt Rate - Afr Amer 92 mL/min (>60); Estimated Creatinine Clearance 42.39 ml/min; Glucose 126 mg/dL (74-106); High Density Lipoprotein 47 mg/dL; Potassium 4.1 mmol/L (3.5-5.1); Sodium Level 140 mmol/L (136-145); T4 Free Direct 1.71 ng/dL (0.76-1.46); Thyroid Stim Hormone (TSH) 1.66 uIU/mL (0.358-3.74); Triglycerides 85 mg/dL; Very Low Density Lipoprotein 17 mg/dL (5-40)
[2020-03-22 07:32] VITALS: PULSE 88
[2020-03-22 07:51] LABS: Hemoglobin A1c 5.8 % (3.8-5.6)
[2020-03-22 08:05] VITALS: BP 121/64; PULSE 85; RESP 18; TEMP 36.6; O2SAT 95
--- NOTE | 2020-03-22 08:36 | DCINST_ITS ---
- Discharge Diagnoses Current Active Problems: Current Active and Chronic Problems (Last Reviewed 09/28/19 @ 08:50 by HENRI Loja) A. fib with RVR (Acute) You will use the following diet at home:: Cardiac Your food should be the consistency of: Regular Discharge Activity: May Not Drive Call your doctor if you observe: Fever of 101 or Higher, Numbness or Tingling, Change in Color, Shortness of breath, Dizziness, Fainting spells, Swelling in the ankles, Chest pain, Prolonged hiccoughing, Increased palpitations (irregular heartbeat), Calf discomfort, Uncontrolled pain Allergies/Adverse Reactions: Allergies No Known Allergies Allergy (Verified 03/21/20 09:46) Medications to take at Discharge losartan 25 mg tablet 25 mg PO DAILY #90 tab 11/19/18 RX: Apixaban [Eliquis] 5 mg PO BID #60 tab 03/22/20 RX: Carvedilol 12.5 mg PO BID #60 tab 03/22/20 RX: Furosemide [Lasix] 20 mg PO DAILY #30 tab 03/22/20 RX: Senna/Docusate Sodium [Senokot-S] 2 tablet PO BID PRN PRN tablet 03/22/20 The following prescriptions were given: RX: Carvedilol 12.5 mg PO BID #60 tab Transmission Status: Pending to [facility] RX: Apixaban [Eliquis] 5 mg PO BID #60 tab Transmission Status: Pending to [facility] RX: Furosemide [Lasix] 20 mg PO DAILY #30 tab Transmission Status: Pending to [facility] Primary Care Physician: Donald Munguia MD [Primary Care Provider] - Please follow up with your Primary Care Physician in: in 2 weeks Test Results: Test results from this visit will be discussed in further detail at your follow- up appointment, if applicable. Please Follow Up With: Freddy Rose MD When: in 2-3 weeks
[2020-03-22 08:37] VITALS: BP 121/64; PULSE 85; RESP 18; TEMP 36.6; O2SAT 95
[2020-03-22] MEDS: Furosemide 20 MG/2 ML VIAL IV (09:06)
--- NOTE | 2020-03-22 10:37 | DS.PCM_ITS ---
Discharge Date and Diagnosis Date of Admission: 03/21/20 Date of Discharge: 03/22/20 - Primary Discharge Diagnosis Acute Problems: Active Problems (Last Reviewed 09/28/19 @ 08:50 by HENRI Loja) A. fib with RVR (Acute) - Secondary Discharge Diagnosis Chronic Problems: Chronic Problems (Last Reviewed 09/28/19 @ 08:50 by HENRI Loja) History of left heart catheterization (Chronic) 07/30/2009 but report not in Centricity: reported done by Dr. Guaman Hyperlipidemia (Chronic) Hypertension (Chronic) Dilated cardiomyopathy (Chronic) Nonrheumatic mitral valve regurgitation (Chronic) Hospital Course and Treatment Summary of Care Provided: The patient is a 79 year old F with history of dilated cardiomyopathy, EF 35 to 40% as per echo in October 2017 came to ED with diarrhea for couple days. In ED, she was found, heart rate 142 with A. fib with RVR on monitor. EKG shows A. fib with RVR with PVC at 146/min with LAD. Previous EKG of October 2017 shows normal sinus rhythm at 67 bpm with LAD LBBB. In ER, she was given Cardizem 25 mg IV bolus and then 20 mg IV bolus and heart rate is controlled. 1. A. fib with RVR: Heart rate is controlled. Still in A. fib. Coreg dose increased to 12.5 mg twice daily. Risk and benefit of anticoagulant discussed with the patient in presence of patient's daughter, Ms. Shahrzad Xiong and agreed upon Eliquis. Repeat EKG shows junctional rhythm with PVCs and PACs and incomplete LBBB, mid LAD. groundwater monitoring technician shows sinus rhythm. There was mild increase in troponins, flat and indeterminate although first 1 was normal due to demand ischemia from A. fib with RVR. Patient does not have chest pain or shortness of breath or EKG sent therefore acute coronary syndrome ruled out. 2. Degenerative joint disease, status post left hemiarthroplasty after a fracture and SI joint arthritis: Patient follows Dr. Roy and pain management Dr. Keen. Most probably she is going to have joint injection in about 2 weeks. She was advised to inform Dr. Keen to discontinue Eliquis 48 to 72 hours prior to procedure and resume about 24 to 48 hours. 3. Isolated diarrhea probably irritable bowel or stress related: Resolved. Last bowel movement was about 2 days ago. Clinically, C. difficile is ruled out. He did not had bowel movement for stool sample. 4. Nonischemic dilated cardiomyopathy, chronic systolic heart failure: Patient had 2D echo in October 2017 reported as as mildly dilated LV with EF 35 to 40%, RVSP 35 mg. Patient also had cardiac cath in the past probably outside hospital and patient self-reported no major coronary abnormality. Repeat 2D echo was done on 03/21/2020: Interpretation Summary Severely dilated left ventricle. The estimated ejection fraction is 27 %. There is moderate to severe global hypokinesis of the left ventricle. Stage 2 diastolic dysfunction. Bubble contrast study negative for right to left interatrial shunt. The left atrium is moderately enlarged. Compared to previous study, the left ventricular systolic function has worsened.. Lasix increased to 20 mg daily, Coreg increased to 12.5 mg twice daily. On losartan 25 mg daily. Started on Eliquis and baby aspirin discontinued. Discussed with Dr. Rose Prescription sent to patient pharmacy. 5. Other comorbidities include hypertension, dyslipidemia: Home medication reconciliation done. Living will/advanced directive/end of life care: Patient does not have living will or advanced directive. Full code Discharge medication reconciliation done. Discharge follow-up instructions completed. Discharge process discussed with the patient and all questions were answered to patient's satisfaction. The daughter called that Eliquis is expensive for her but skilled nursing case manager discussed with the pharmacy and daughter and they are okay with Eliquis. Total time spent, exact 35 minutes on discharge meds reconciliation, examination, coordination of care with nurses and ancillary staff, review of imaging and blood test and discussion with the patient on follow-up instructions Objective: Seen and examined. Patient was converted to sinus rhythm in the evening yesterday. Patient has junctional rhythm with multiple PVCs and PACs on compliance monitor. Physical exam General: Alert, Oriented x3, Cooperative HEENT: Atraumatic, PERRLA, EOMI, Normocephalic Oral: No Gingival or Mucosal Lesions/ Ulcerations Neck: Supple, No JVD, Negative Carotid Bruits Lungs: Air entry diminished in bilateral lung bases. No crepitation/rhonchi Cardiovascular: Sinus rhythm with irregular heartbeat, multiple PVCs, Normal S1, Normal S2, No murmurs Abdomen: Bowel Sounds Present, Soft, Non Tender, Non-Distended : No renal angle tenderness. No suprapubic tenderness. Extremities: Mild ankle edema, Capillary Refill Less than 3 Seconds Skin: No rashes, No breakdown Musculoskeletal: No Tenderness to Palpation of Joints or Extremities Neurological: Cranial nerves II-XII grossly intact, Deep Tendon Reflexes 2+/4 and Symmetrical, Neuro grossly intact Psych/Mental Status: Normal Affect, Appropriate - Physical Exam Vitals/I&O's: Vital Signs Temp Pulse Resp BP Pulse Ox 97.8 F 85 18 121/64 H 95 03/22/20 08:05 03/22/20 08:05 03/22/20 08:05 03/22/20 08:05 03/22/20 08:05 Oxygen Delivery Method Room Air Weight: 133 lb 8 oz Body Mass Index (BMI) 22.1 Intake and Output for Last 24 Hours 03/20/20 03/21/20 03/22/20 23:59 23:59 23:59 Intake Total 477.5 / 477.5 Output Total 0 / 0 Balance 477.5 / 477.5 0 / 0 Microbiology Past 72 Hours 03/21/20 18:25 Stool C. difficile DNA Amplification - Final 03/21/20 18:25 Stool Stool Lactoferrin - Final 03/21/20 18:25 Stool Stool Occult Blood (NO) - Final Laboratory Results 03/21/20 10:38: WBC 12.6 H, RBC 4.57, Hgb 12.8, Hct 40.0, MCV 87.5, MCH 28.0, MCHC 32.0, RDW Std Deviation 49.3 H, RDW Coeff of Preston 15.5 H, Plt Count 400, MPV 10.9, Immature Gran % (Auto) 0.500, Neut % (Auto) 79.5 H, Lymph % (Auto) 12.4 L, [place] % (Auto) 6.5, Eos % (Auto) 0.6, Baso % (Auto) 0.5, Absolute Neuts (auto) 10.0 H, Absolute Lymphs (auto) 1.57, Nucleated RBC % 0 03/21/20 10:38: Sodium 138, Potassium 4.1, Chloride 104, Carbon Dioxide 25.0, Anion Gap 9, BUN 24 H, Creatinine 0.90, Estim Creat Clear Calc 45.20, Est GFR (MDRD) Af Amer 78, Est GFR (MDRD) Non-Af 64, BUN/Creatinine Ratio 26.5 H, Glucose 163 H, Calcium 9.8, Magnesium 2.5, Troponin I 0.037, TSH 3.03 03/21/20 10:38: PT 14.3, INR 1.2, APTT 28.7 03/21/20 14:33: Magnesium 2.5, Total Bilirubin 1.10 H, Direct Bilirubin 0.31 H, AST 22, ALT 21, Alkaline Phosphatase 110, Total Protein 7.0, Albumin 3.2, Globulin 3.8 03/21/20 16:00: Troponin I 0.065 H 03/21/20 18:57: Troponin I 0.065 H 03/22/20 05:56: WBC 8.6, RBC 4.05 L, Hgb 11.3 L, Hct 36.5 L, MCV 90.1, MCH 27.9, MCHC 31.0 L, RDW Std Deviation 51.1 H, RDW Coeff of [place] 15.7 H, Plt Count 312, MPV 10.7, Immature Gran % (Auto) 0.200, Neut % (Auto) 74.5 H, Lymph % (Auto) 12.6 L, [place] % (Auto) 6.4, Eos % (Auto) 5.1 H, Baso % (Auto) 1.2 H, Absolute Neuts (auto) 6.4, Absolute Lymphs (auto) 1.09, Nucleated RBC % 0 03/22/20 05:56: Sodium 140, Potassium 4.1, Chloride 110 H, Carbon Dioxide 23.0, Anion Gap 7, BUN 19 H, Creatinine 0.78, Estim Creat Clear Calc 42.39, Est GFR (MDRD) Af Amer 92, Est GFR (MDRD) Non-Af 76, BUN/Creatinine Ratio 24.5 H, Glucose 126 H, Calcium 9.3, Triglycerides 85, Cholesterol 131, LDL Cholesterol 67, VLDL Cholesterol 17, HDL Cholesterol 47, TSH 1.66, Free T4 1.71 H 03/22/20 05:56: Hemoglobin A1c 5.8 H Current Medications Acetaminophen (Tylenol) 650 mg PO Q6H PRN PRN PRN Reason: Pain Score 1-10/Temp > 100.7 F Al Hydroxide/Mg Hydroxide (Mylanta Ii) 30 ml PO Q6H PRN PRN PRN Reason: Gastric Burning Apixaban (Eliquis) 5 mg PO BID [facility] Last Admin: 03/21/20 20:18 Dose: 5 mg Documented by: Carvedilol (Coreg) 12.5 mg PO BID [facility] Last Admin: 03/21/20 20:18 Dose: 12.5 mg Documented by: Dextrose (D50w Syringe) 0 gm IV X1 PRN; Protocol PRN Reason: Hypoglycemia Furosemide (Lasix) 20 mg IV X1 ONE Stop: 03/22/20 08:05 Glucagon () 1 mg IM .X1 PRN PRN Reason: Hypoglycemia Sodium Chloride () 250 mls @ 15 mls/hr IV .[id number] PRN PRN Reason: Saline Flush Sodium Chloride () 250 mls @ 15 mls/hr IV .[id number] PRN PRN Reason: Additional IVPB Infusion Losartan Potassium (Cozaar) 25 mg PO DAILY [facility] Melatonin (Melatonin) 3 mg PO QHS PRN PRN PRN Reason: INSOMNIA Metoprolol Tartrate (Lopressor (Beta Damaris)) 5 mg IV Q6H PRN PRN Reason: HR>120/m Morphine Sulfate () 2 mg IV Q3H PRN PRN PRN Reason: Pain Score 6-10/10 Nitroglycerin (Nitrostat) 0.4 mg SUBLINGUAL Q5M PRN PRN Reason: CARDIAC/CHEST PAIN Oxycodone HCl (Oxyir) 5 mg PO Q4H PRN PRN PRN Reason: Pain Score 4-5/10 Prochlorperazine Edisylate (Compazine Iv) 5 mg IV Q4H PRN PRN PRN Reason: Breakthrough Nausea/Vomiting Senna/Docusate Sodium (Senokot-S, Susan-Colace) 2 tablet PO BID PRN PRN PRN Reason: Constipation Sodium Chloride () 10 - 40 ml IV UD PRN PRN Reason: SALINE FLUSH Discharge Activity: May Not Drive Call your doctor if you observe: Fever of 101 or Higher, Numbness or Tingling, Change in Color, Shortness of breath, Dizziness, Fainting spells, Swelling in the ankles, Chest pain, Prolonged hiccoughing, Increased palpitations (irregular heartbeat), Calf discomfort, Uncontrolled pain Home Medications: Medications to take at Discharge losartan 25 mg tablet 25 mg PO DAILY #90 tab 11/19/18 Apixaban [Eliquis] 5 mg PO BID #60 tab 03/22/20 Carvedilol 12.5 mg PO BID #60 tab 03/22/20 Furosemide [Lasix] 20 mg PO DAILY #30 tab 03/22/20 Senna/Docusate Sodium [Senokot-S] 2 tab PO BID PRN PRN tab 03/22/20 Following Prescrptions Were Given to Patient: Carvedilol 12.5 mg PO BID #60 tab Transmission Status: Received by [facility] Apixaban [Eliquis] 5 mg PO BID #60 tab Transmission Status: Received by [facility] Furosemide [Lasix] 20 mg PO DAILY #30 tab Transmission Status: Received by [facility] Primary Care Physician: Donald Munguia MD [Primary Care Provider] - Please follow up with your Primary Care Physician in: in 2 weeks Please Follow Up With: Freddy Rose MD When: in 2-3 weeks Medical Necessity - Tobacco Use Smoking Status: Former smoker Meaningful Use Info Meaningful Use Diagnoses (Choose all that apply): None applicable OBSV E&M: 53339 Observation care discharge
--- NOTE | 2020-03-22 13:16 | NURSING ---
Daughter phones stating that Eliquis is too expensive and insurance will not accept coupons for medication. Requesting Dr. Cox to order something cheaper. RN notified Dr. Cox of same. Dr. Cox states he will order something different. Daughter,Shahrzad aware of same.
--- NOTE | 2020-03-22 14:19 | CASEMGMT ---
Per Dr. Cox, pt's daughter, Shahrzad, called in stating Eliquis is too expensive at this time. Call to [facility] and per pharmacist, pt has a deductible of about $150 to meet and then monthly co-pay will be $47.00. Per pharmacist, pt only picked up about 7days worth at this time. Call to daughter, Shahrzad, and she is updated on all at this time, voices understanding. Shahrzad states that she had already called pt's insurance and was made aware that there was deductible to meet and she started a co-pay exclusion for pt at this time. Per [facility] formulary, Eliquis and Xarelto are the same tier 3, so Xarelto will most likely be the same patten. Daughter updated on all and advised that this RN CT can leave an Eliquis 30 day free trial card for her at the main entrance to brain picker, voices understanding. Daughter states that she will just pay the deductible for pt at this time and go from there. Daughter voices no further questions/concerns/needs at this time and thanks this RN CM for the info and f/u with her at this time. SStsimi MADDEN CM
== END 2020-03-22 08:37 | disposition home or self-care (01) ==
LOC: ED 10:18 → PCU 13:20
PROVIDERS: Admitting Provider Internal Medicine; Emergency Provider Emergency Medicine; PCP Family Medicine; Visit Provider Internal Medicine
DX: I48.91 Unspecified atrial fibrillation (principal); E78.5 Hyperlipidemia, unspecified; I11.0 Hypertensive heart disease with heart failure; I50.22 Chronic systolic (congestive) heart failure; I42.0 Dilated cardiomyopathy; I08.3 Combined rheumatic disorders of mitral, aortic and tricuspid valves; R94.31 Abnormal electrocardiogram [ECG] [EKG]; Z79.899 Other long term (current) drug therapy; Z79.82 Long term (current) use of aspirin; Z87.891 Personal history of nicotine dependence; R19.7 Diarrhea, unspecified; I44.7 Left bundle-branch block, unspecified
CPT/HCPCS: 36415; 71045; 80048; 80061; 80076; 82274; 83036; 83630; 83735; 84439; 84443; 84484; 85025; 85610; 85730; 87493; 87506; 93005; 93306; 96361; 96374; 96375; 99218; 99251; 99285; J7030; Q9957; A4216; G0378; G0463; J1940

== ENCOUNTER → 2020-06-04 09:36 | Outpatient (CLI) | payer OTHER, SELFPAY ==
[2020-04-20 13:46] VITALS: BMI 22.3
--- NOTE | 2020-06-04 09:39 | RAD_ITS ---
PROCEDURE: Fluoroscopic guided Hip aspiration. DATE: 06/04/2020. INDICATION: Female, 79 years old. Left hip prosthesis. Chronic pain. PHYSICIAN: Basim Pierson M.D. ACCESS SITE: Left hip. NEEDLE: 22-gauge spinal needle. FLUOROSCOPY TIME (if supplied): (0:45) minutes/seconds. One image was obtained. FINDINGS: The risks, benefits, and alternatives to the procedure were explained to the patient. The specific risks of bleeding, infection, and neurovascular injury were detailed and accepted. Witnessed informed consent was obtained. A 22-gauge spinal needle was positioned under radiographic fluoroscopic localization. Approximately 2 cc of ISOVUE-300 instilled for localization purposes. No fluid was aspirated. The patient tolerated the procedure well without any immediate complications. RAD/Inj/Asp Eloy Jt Should/Hip/Knee IMPRESSION: No fluid was aspirated. Electronically Signed: Basim Pierson, at 10:30 EDT , Service support ,
== END ==
PROVIDERS: PCP Family Medicine; Referring Provider Specialist; Visit Provider Specialist
DX: S72.035A Nondisplaced midcervical fracture of left femur, initial encounter for closed fracture (principal); Z96.642 Presence of left artificial hip joint
CPT/HCPCS: 20610; 77002; Q9967

== ENCOUNTER 2020-07-08 08:51 | Inpatient (IN) | payer MEDICARE, SELFPAY ==
[2020-04-20 13:46] VITALS: BMI 22.3
[2020-07-08] VITALS (10 sets, daily range): BP systolic 93–115; BP diastolic 60–88; PULSE 60–137; RESP 16–20; TEMP 36.3–36.8; O2SAT 94–100; BMI 22.6; BMI 23.8
--- NOTE | 2020-07-08 09:23 | RAD_ITS ---
STUDY: X-RAY CHEST REASON FOR EXAM: Female, 79 years old. Palpitations, fatigue, weakness, history of a-fib. TECHNIQUE: Single AP portable view of the chest. COMPARISON: March 21, 2020 chest x-ray FINDINGS: There is persistent slightly worse left pleural effusion. There is right lower lobe atelectasis and/or fibrotic change also similar to the prior study. There is no demonstrated pleural abnormality. There is mild cardiac enlargement. Normal mediastinum and laura. Normal visualized pulmonary arteries. There is atherosclerotic calcification of the aortic arch with tortuosity. Visualized levoscoliosis of the thoracolumbar junction. Normal visualized ribs, clavicles, and shoulders. There is no demonstrated abnormality of the visualized soft tissue structures of the upper abdomen. RAD/Chest 1 View (Portable) IMPRESSION: Persistent small left effusion possibly slightly greater than prior study with atelectasis. Persistent right lower lobe atelectasis and/or fibrotic change stable since prior study. Electronically Signed: Keira Rhodes MD at 10:00 EST Tel , Service support ,
--- NOTE | 2020-07-08 09:23 | EKG12_ITS ---
Test Reason : PALPS Blood Pressure : / mmHG Vent. Rate : 120 BPM Atrial Rate : 122 BPM P-R Int : 000 ms QRS Dur : 130 ms QT Int : 382 ms P-R-T Axes : 000 -68 082 degrees QTc Int : 539 ms Atrial fibrillation with rapid ventricular response with premature ventricular or aberrantly conducte d complexes Left axis deviation Non-specific intra-ventricular conduction block Cannot rule out Septal infarct , age undetermined Abnormal ECG Confirmed by EDMOND BRUNSON, JAS ([id number]), staff editor CHELSI TABOR ([id number]) on 07/10/2020 11:24:44 AM Referred By: JAZ Confirmed By:JAS PRUITT MD
--- NOTE | 2020-07-08 09:24 | ED.VIS.GEN ---
History of Present Illness Chief Complaint: Palpitations Narrative: This patient is a 79-year-old female who presents with chief complaint of A. fib. She does have a history of atrial fibrillation. She is anticoagulated she believes this is Coumadin but is uncertain. For the past week and a half she states she has felt like her heart is in the way. She is a poor informant and has difficulty further clarifying this. She denies any chest pain or shortness of breath. No lightheadedness or dizziness. She otherwise denies recent illness. No fevers cough vomiting diarrhea. Past Medical History - Allergies and Home Meds Allergies/Adverse Reactions: Allergies apixaban [From Eliquis] Adverse Reaction (Verified 07/08/20 08:52) diarrhea Primary Care Physician: Freddy Rose MD [Primary Care Provider] - Past Medical History: - - Atrial fibrillation Smoking Status: Never smoker Review of Systems All systems negative except as indicated General: Denies: Fever Eyes: Denies: Visual changes - bilaterally ENT: Denies: Bilateral ear pain Cardiovascular: Denies: Chest pain Respiratory: Reports: - - Palpitations. Denies: Dyspnea, Cough, Sputum Gastrointestinal: Denies: Abdominal pain, Nausea, Vomiting, Diarrhea Musculoskeletal: Denies: Myalgias, Arthralgias Skin: Denies: Rash Neurological: Denies: Headache Physical Exam Vital Signs/Narrative: Vital Signs Temp Pulse Resp BP Pulse Ox 07/08/20 08:52 97.3 F L 137 H 17 115/64 96 Inital Vital Signs reviewed: Yes General: Well nourished Head: Normocephalic Eyes: EOMI ENT: Moist mucous membranes Cardiovascular: Irregular, Tachycardia Respiratory: No distress, CTA bilaterally Abdomen: Soft, Nontender Extremities: Nontender, No edema Skin: Normal color Neurological: Alert Psychological: Normal affect Diagnostic/Tx/Re-eval Impressions Chest X-Ray 07/08/20 09:23 IMPRESSION: Persistent small left effusion possibly slightly greater than prior study with atelectasis. Persistent right lower lobe atelectasis and/or fibrotic change stable since prior study. Electronically Signed: Keira Rhodes MD at 10:00 EST Tel , Service support , 07/08/20 09:23 Chest 1 View (Portable) [RAD] Stat Laboratory Results 07/08/20 07/08/20 09:05 09:05 WBC 10.7 RBC 4.39 Hgb 12.3 Hct 38.4 MCV 87.5 MCH 28.0 MCHC 32.0 RDW Std Deviation 48.1 H RDW Coeff of Preston 15.6 H Plt Count 285 MPV 11.7 Immature Gran % (Auto) 0.500 Neut % (Auto) 79.2 H Lymph % (Auto) 13.0 L [place] % (Auto) 6.8 Eos % (Auto) 0.3 Baso % (Auto) 0.2 Absolute Neuts (auto) 8.5 H Absolute Lymphs (auto) 1.39 Nucleated RBC % 0 Sodium 139 Potassium 2.5 L* Chloride 101 Carbon Dioxide 27.0 Anion Gap 11 BUN 28 H Creatinine 1.33 H Estim Creat Clear Calc 28.02 Est GFR (MDRD) Af Amer 50 L Est GFR (MDRD) Non-Af 41 L BUN/Creatinine Ratio 21.1 H Glucose 203 H Calcium 9.8 Troponin I 0.090 H - Medical Decision Making EKG shows atrial fibrillation with RVR at a rate of 120. Laboratory studies returned notable for a potassium of 2.5. Troponin is elevated at 0.09. Chest x-ray shows a small pleural effusion similar to prior. Patient's heart rate is improved to about 100 on reevaluation after 20 mg of IV Cardizem. Hospitalization was recommended. Patient was initially very hesitant to stay but after speaking to her at length as well as her daughter patient is agreeable to hospitalization. Patient was discussed with the hospitalist who agrees to admit. ED Disposition - Plan for ED Patient: Disposition: Acute Care Hospital [facility] Diagnosis: Atrial fibrillation with RVR Referrals: Freddy Rose MD [Primary Care Provider] -
[2020-07-08] MEDS: dilTIAZem 25 MG/5 ML Vial 20 MG IV BOLUS (09:30)
[2020-07-08 09:31] LABS: Absolute Lymphocyte Count 1.39 X10^3/uL (0.83-4.51); Absolute Neutrophil Count 8.5 X10^3/uL (2.0-7.7); Basophil# 0.02 X10^3/uL; Basophil% 0.2 % (0-1); Eosinophil# 0.03 X10^3/uL; Eosinophils% 0.3 % (0-5); Hematocrit 38.4 % (37-47); Hemoglobin 12.3 g/dL (12.0-15.0); Lymphocyte # 1.39 X10^3/ul (4.0); Mean Corpuscular Volume 87.5 fL (81-99); Mean Platelet Vol. 11.7 fl (6.2-12.0); Monocyte# 0.73 X10^3/uL; Monocyte% 6.8 % (0-10); NRBC Flagged by Analyzer 0 % (0-5); Neutrophil # 8.47 X10^3/uL (2.7-7.7); Neutrophil % 79.2 % (47-70); Platelet Count 285 K/mm3 (150-450); RBC Distribution Width CV 15.6 % (11.6-14.6); RBC Distribution Width SD 48.1 fl (35.1-43.9); Red Blood Count 4.39 M/mm3 (4.2-5.4); White Blood Count 10.7 K/mm3 (4.4-11.0)
[2020-07-08 09:57] LABS: Anion Gap 11 (5-15); BUN 28 mg/dL (7-18); BUN/Creat Ratio 21.1 RATIO (10-20); Calcium,Total 9.8 mg/dL (8.5-10.1); Chloride 101 mmol/L (98-107); Creatinine, Serum 1.33 mg/dL (0.55-1.02); EST Glomerular Filtration Rate 41 mL/min (>60); Est Glom Filt Rate - Afr Amer 50 mL/min (>60); Estimated Creatinine Clearance 28.02 ml/min; Glucose 203 mg/dL (74-106); Potassium 2.5 mmol/L (3.5-5.1); Sodium Level 139 mmol/L (136-145)
[2020-07-08] MEDS: Potassium Chloride 10mEq/100mL 10 MEQ/100 ML IV.SOLN. 100 MEQ IV BOLUS ×4 (10:40→14:30)
--- NOTE | 2020-07-08 12:01 | PCM.HP.STD ---
Problem List (1) Unstable angina Status: Acute (2) Atrial fibrillation with rapid ventricular response Status: Acute (3) Non-ischemic cardiomyopathy Status: Chronic (4) Nonrheumatic mitral valve regurgitation Status: Chronic (5) Left ventricular diastolic dysfunction Status: Chronic (6) Essential (primary) hypertension Status: Chronic (7) Hyperlipidemia Status: Chronic History of Present Illness Date of Admission: 07/08/20 Chief Complaint: palpitations. chest pain. The patient is a 79 year old F acute onset of chest pain and palpitations. She presented to the emergency room and was noted to be in atrial fibrillation with RVR. He received a one-time dose of 20 mg of diltiazem and then was rate controlled though still in atrial fibrillation. Additionally, patient had a very low potassium of 2.5 and did receive IV and oral replacement. Currently, the patient is chest pain-free and no longer having palpitations. She keeps asking if she will be discharged tomorrow morning as that is what has happened to her before when she has had similar bout of her atrial fibrillation with RVR. [] Past Medical History Past Medical History (Chronic Problems): Chronic Problems (Last Reviewed 04/20/20 @ 14:[address] Freddy Rose MD) Non-ischemic cardiomyopathy (Chronic) Nonrheumatic mitral valve regurgitation (Chronic) Left ventricular diastolic dysfunction (Chronic) Essential (primary) hypertension (Chronic) Hyperlipidemia (Chronic) Medical History: Medical History (Last Reviewed 07/08/20 @ 12:[address] Dangelo Villarreal DO) Atrial fibrillation with rapid ventricular response (Acute) Onset Date: 03/21/20 I48.91 Non-ischemic cardiomyopathy (Chronic) I42.8 Nonrheumatic mitral valve regurgitation (Chronic) I34.0 Left ventricular diastolic dysfunction (Chronic) I51.9 Essential (primary) hypertension (Chronic) I10 Hyperlipidemia (Chronic) E78.5 Diarrhea R19.7 Allergies apixaban [From Eliquis] Adverse Reaction (Verified 07/08/20 08:52) diarrhea Home Medications: Ambulatory Orders Medication Instructions Recorded Senna/Docusate Sodium [Senokot-S] 2 tab PO BID PRN PRN tab 03/22/20 carvedilol 12.5 mg tablet 12.5 mg PO BID #180 tab 06/17/20 furosemide 20 mg tablet 20 mg PO DAILY #90 tab 06/17/20 losartan 25 mg tablet 25 mg PO DAILY #90 tab 06/17/20 Surgical History: Surgical History (Last Reviewed 07/08/20 @ 12:[address] Dangelo Villarreal DO) History of left heart catheterization Onset Date: 07/30/09 Z98.890 07/30/2009 but report not in Centricity: reported done by Dr. Guaman History of hemiarthroplasty of left hip Z96.642 10/27/17 Smoking Status: Never smoker Tobacco Use: Non-smoker Alcohol: None - *Family History Maternal Family History: Family History (Last Reviewed 07/08/20 @ 12:[address] Dangelo Villarreal DO) Father CAD (coronary artery disease) Review of Systems Constitutional: Denies: Anorexia, Chills, Fever, Night Sweats Eyes: Denies: Blurred vision, Double vision HEENT: Denies: Head Aches, Sinus Congestion, Sinus Drainage Cardiovascular: Reports: Chest Pain, Palpitations. Denies: Edema Respiratory: Denies: Cough, Shortness of breath at rest, Sputum production Gastrointestinal: Denies: Abdominal Pain, Nausea, Vomiting Genitourinary: Denies: Dysuria Hematologic/ Lymphatic: Denies: Easy Bruising, Easy Bleeding, Hx of blood clot Comment: All review of systems were negative except as mentioned above in the history of present illness and the other review of systems. VTE Information - Inpt Only VTE Present on Admission: No VTE Mechan Device Prophylaxis: None VTE Pharm Prophylaxis ordered?: No Reason prophylaxis not ordered:: Treatment Not Indicated Patient Problems: Active and Suspected Problems (Last Reviewed 04/20/20 @ 14:[address] Freddy Rose MD) Atrial fibrillation with rapid ventricular response (Acute 03/21/20) - Physical Exam Vitals/I&O's: Vital Signs Temp Pulse Resp BP Pulse Ox 36.3 C L 101 H 18 103/77 97 07/08/20 08:52 07/08/20 10:59 07/08/20 10:59 07/08/20 10:59 07/08/20 10:59 Oxygen Delivery Method Room Air Weight: 56.245 kg Body Mass Index (BMI) 22.6 Intake and Output for Last 24 Hours 07/06/20 07/07/20 07/08/20 23:59 23:59 22:59 Intake Total 100 / 100 Balance 100 / 100 General: Alert, Cooperative, No apparent distress HEENT: Atraumatic, Normocephalic Oral: Moist Mucosa, No Gingival or Mucosal Lesions/ Ulcerations Neck: No Nodes, Thyroid Normal Size and Texture Lungs: Clear to auscultation, Normal air movement, No rhonchi, No wheeze Cardiovascular: Normal S1, Normal S2, Irregular Rate Abdomen: Bowel Sounds Present, Soft, Non Tender, Non-Distended Extremities: No edema, No Calf Tenderness Skin: No rashes, No breakdown Psych/Mental Status: Normal Affect, Appropriate Laboratory Results 07/08/20 09:05: WBC 10.7, RBC 4.39, Hgb 12.3, Hct 38.4, MCV 87.5, MCH 28.0, MCHC 32.0, RDW Std Deviation 48.1 H, RDW Coeff of [place] 15.6 H, Plt Count 285, MPV 11.7, Immature Gran % (Auto) 0.500, Neut % (Auto) 79.2 H, Lymph % (Auto) 13.0 L, [place] % (Auto) 6.8, Eos % (Auto) 0.3, Baso % (Auto) 0.2, Absolute Neuts (auto) 8.5 H, Absolute Lymphs (auto) 1.39, Nucleated RBC % 0 07/08/20 09:05: Sodium 139, Potassium 2.5 L*, Chloride 101, Carbon Dioxide 27.0, Anion Gap 11, BUN 28 H, Creatinine 1.33 H, Estim Creat Clear Calc 28.02, Est GFR (MDRD) Af Amer 50 L, Est GFR (MDRD) Non-Af 41 L, BUN/Creatinine Ratio 21.1 H, Glucose 203 H, Calcium 9.8, Troponin I 0.090 H EKG reviewed and showed atrial fibrillation rate controlled. Chest x-ray personally reviewed and showed a left lower lobe effusion. Chronic changes in the right lower lobe. No evidence of any pneumonia. Current Medications Potassium Chloride () 10 meq in 100 mls @ 100 mls/hr IV BOLUS Q1H ELKIN Stop: 07/08/20 14:59 Last Admin: 07/08/20 11:49 Dose: 100 mls/hr Documented by: Assessment/Plan All Active Problems (Last Reviewed 04/20/20 @ 14:[address] Freddy Rose MD) Unstable angina (Acute) Atrial fibrillation with rapid ventricular response (Acute 03/21/20) 1. Atrial fibrillation with RVR: Currently rate controlled. Continue with carvedilol. Cardiology consultation. Patient had an echocardiogram back in March of this year that showed an EF of 27%. Review of Dr. Rose's note from given that she has having atrial fibrillation will start her on enoxaparin. 2. Unstable angina: May been related with age fibrillation but troponin is minimally elevated. We will continue to cycle troponins. 3. Heart failure with a reduced ejection fraction: Chronic. Appears compensated at this time. EF of 27% from March. Continue with carvedilol and losartan and Lasix. 4. Hypokalemia: Received total of 80 MEq of potassium in the emergency room. Check magnesium. Monitor. 5. VTE prophylaxis: Not indicated as patient is anticoagulated. 6. Advanced care planning: Asked the patient about CODE STATUS. Asked if she has DNR or full code to which she responded no to both of those. Dr. Marquez directly is like if she wanted CPR in the event of cardiac arrest as she is told me that she is not going to answer me. 7. Disposition: Patient very adamant about being discharged tomorrow morning. I informed patient that we do not have enough information at this time to determine if she is good to be stable for discharge. I told her that the hope is that she would be stable that would she could be discharged but given the influx of patients, I told her that we could not guarantee that she could be discharged in the morning if she is deemed stable to be discharged tomorrow. Inpatient E&M: [id number] Init Hosp L2
--- NOTE | 2020-07-08 12:25 | PCM.CONS.C ---
Problem List (1) Unstable angina Status: Acute (2) Atrial fibrillation with rapid ventricular response Status: Acute (3) Non-ischemic cardiomyopathy Status: Chronic (4) Left ventricular diastolic dysfunction Status: Chronic Reason for Consult Date of Consultation: 07/08/20 Reason for Consultation: Atrial fibrillation with fast ventricular rate and angina History of Present Illness: The patient is a 79 year old F poor historian, poor memory, was seen in the emergency room because of chest pain and palpitation according to the chart. At the moment patient denies any chest pain or shortness of breath. She does not know why she is here. According to , patient is known to have nonischemic dilated cardiomyopathy. Ejection fraction has deteriorated. March of this year, repeat echocardiogram showed ejection fraction of 27%. She is known to have paroxysmal atrial fibrillation. She has been refusing oral anticoagulation and has been refusing any procedure. She claims that in the good day she can do anything she wants to do. She lives alone with a dog. She does all the housework, shopping and driving. She denies any history of myocardial infarct or CVA. She is a non-smoker and nondrinker. She has been treated for hypertension and hyperlipidemia. EKG in the emergency room showed atrial fibrillation with fast ventricular rate and frequent PVCs. There was intraventricular conduction delay. There were poor R wave progression seen in the anterior leads. This has been unchanged from EKG done several months ago. At home she has been taking beta-kayleen, ARB and diuretic. Her GFR has decreased to stage IIIa. 2 GFR several months ago. Troponin was elevated [] Past Medical History Allergies/Adverse Reactions: Allergies apixaban [From Eliquis] Adverse Reaction (Verified 07/08/20 08:52) diarrhea Home Medications: Ambulatory Orders Medication Instructions Recorded Senna/Docusate Sodium [Senokot-S] 2 tab PO BID PRN PRN tab 03/22/20 carvedilol 12.5 mg tablet 12.5 mg PO BID #180 tab 06/17/20 furosemide 20 mg tablet 20 mg PO DAILY #90 tab 06/17/20 losartan 25 mg tablet 25 mg PO DAILY #90 tab 06/17/20 Past Medical History (Chronic Problems): Chronic Problems (Last Reviewed 07/08/20 @ 12:[address] Dangelo Villarreal DO) Non-ischemic cardiomyopathy (Chronic) Nonrheumatic mitral valve regurgitation (Chronic) Left ventricular diastolic dysfunction (Chronic) Essential (primary) hypertension (Chronic) Hyperlipidemia (Chronic) - *Family History Maternal Family History: Family History (Last Reviewed 07/08/20 @ 12:[address] Dangelo Villarreal, DO) Father CAD (coronary artery disease) Smoking Status: Never smoker Tobacco Use: Non-smoker Alcohol: None Review of Systems - Review of Systems General: Reports: - - Unobtainable due to poor memory Cardiovascular: Reports: Palpitations, - - She denies any chest pain, however she was seen in the emergency room earlier for chest pain Respiratory: Denies: Cough, Sputum Production, Hemoptysis Gastrointestinal: Denies: Hematemesis, Hematochezia, Melena Objective: Vital Signs Temp Pulse Resp BP Pulse Ox 97.3 F L 101 H 18 103/77 97 07/08/20 08:52 07/08/20 10:59 07/08/20 10:59 07/08/20 10:59 07/08/20 10:59 Oxygen Delivery Method Room Air Weight: 124 lb Body Mass Index (BMI) 22.6 Intake and Output for Last 24 Hours 07/06/20 07/07/20 07/08/20 23:59 23:59 22:59 Intake Total 100 / 100 Balance 100 / 100 General: Alert, No Acute Distress, - - Extremely poor historian and poor memory HEENT: Atraumatic Neck: Supple Lungs: Clear to auscultation Cardiovascular: Irregular Rhythm, No Murmurs Abdomen: Bowel Sounds Present, Soft, Non Tender, No HSM, No Organomegaly Neurological: No Focal Motor or Sensory Deficit, - - Slightly confused, does not remember why she is here 07/08/20 09:05: WBC 10.7, RBC 4.39, Hgb 12.3, Hct 38.4, MCV 87.5, MCH 28.0, MCHC 32.0, Plt Count 285, MPV 11.7, Immature Gran % (Auto) 0.500, Neut % (Auto) 79.2 H, Lymph % (Auto) 13.0 L, [place] % (Auto) 6.8, Eos % (Auto) 0.3, Baso % (Auto) 0.2, Absolute Neuts (auto) 8.5 H, Nucleated RBC % 0 07/08/20 09:05: Sodium 139, Potassium 2.5 L*, Chloride 101, Carbon Dioxide 27.0, Anion Gap 11, BUN 28 H, Creatinine 1.33 H, Est GFR (MDRD) Af Amer 50 L, Est GFR (MDRD) Non-Af 41 L, BUN/Creatinine Ratio 21.1 H, Glucose 203 H, Calcium 9.8, Troponin I 0.090 H Rhythm: EKG: ECHO: Stress Test: Cardiac Cath: PCI: CT Surgery: Holter monitor: EPS: PPM: CXR: Chest CT Scan: Assessment/Plan #1 atrial fibrillation recurrence with fast ventricular rate, better with IV bolus of Cardizem, ventricular rate in the 80s. She denies any chest pain or shortness of breath at the moment. There were frequent PVCs most likely secondary to ischemia and low potassium. You have already replace the potassium. I would recommend monitoring electrolytes tonight and supplement potassium as needed. I would recommend continuing beta-kayleen and ARB which could be switch over to Entresto within this hospitalization. Amiodarone 400 mg p.o. twice daily will be initiated. Digoxin is to be avoided until potassium is normal range. Further Cardizem IV may be needed to control the ventricular rate. Her Liborio vas score is at least 5. Unfortunately patient does not want to take oral anticoagulation. Besides, her mental status precludes her from taking oral anticoagulation safely. #2 elevated troponin, this could be secondary to atrial fibrillation with fast ventricular rate. There has been no further ST-T wave changes to suggest acute myocardial infarct. Slowing down the rate would be the way to go for now. Echocardiogram will be repeated #3 worsening of GFR most likely due to cardiorenal syndrome from use of diuretic and poor cardiac output. I would recommend discontinuing the Lasix especially in the presence of hypokalemia.
--- NOTE | 2020-07-08 12:44 | ECHOL_ITS ---
Reason For Study: AFIB Procedure This was a limited 2D transthoracic echocardiogram. Exam performed portable in patient room. Left Ventricle Moderately dilated left ventricle. The estimated ejection fraction is 20 %. There is moderate to severe global hypokinesis of the left ventricle. Right Ventricle Normal RV size. Normal systolic function. Atria The left atrium is moderately enlarged. Mitral Valve Bileaflet diffuse mitral valve thickening. Mild-Moderate (1-2+) eccentric mitral valve insufficiency. Tricuspid Valve Normal tricuspid valve. Aortic Valve Trisinus/trileaflet aortic valve. Pulmonic Valve Normal pulmonic valve. Great Vessels Normal aortic root. The pulmonary artery is normal size. Plethoric inferior vena cava. The inferior vena cava is dilated. Pericardium/Pleural No pericardial effusion. MMode/2D Measurements & Calculations LVIDd: 6.3 cm IVSd: 0.77 cm LAV(MOD-bp): 107.2 ml LVIDs: 6.1 cm LVPWd: 0.86 cm LAV(MOD-bp) Indexed: 67.4 ml/m2 RVDd: 3.5 cm FS: 4.2 % LAV(MOD-sp2): 94.8 ml LAV(MOD-sp4): 106.0 ml LA A4 area: 29.8 cm2 RA A4 area: 15.1 cm2 Interpretation Summary Moderately dilated left ventricle. The estimated ejection fraction is 20 %. There is moderate to severe global hypokinesis of the left ventricle. The left atrium is moderately enlarged. Compared to previous study, the left ventricular systolic function has worsened.. Compared to previous study, the left ventricular systolic function has worsened.. Ordering Physician: Dangelo Owen Referring Physician: FREDDY ROSE Performed By: Dorita Angulo, SOFIA, RVT
[2020-07-08] MEDS: Ondansetron 4 MG/2 ML Vial IV (16:39)
[2020-07-08 17:52] LABS: Anion Gap 10 (5-15); BUN 29 mg/dL (7-18); BUN/Creat Ratio 25.2 RATIO (10-20); Calcium,Total 8.8 mg/dL (8.5-10.1); Chloride 107 mmol/L (98-107); Creatinine, Serum 1.15 mg/dL (0.55-1.02); EST Glomerular Filtration Rate 49 mL/min (>60); Est Glom Filt Rate - Afr Amer 59 mL/min (>60); Glucose 158 mg/dL (74-106); Potassium 3.5 mmol/L (3.5-5.1); Sodium Level 140 mmol/L (136-145)
[2020-07-08] MEDS: Enoxaparin 60 MG/0.6 ML Syringe SC (18:00)
[2020-07-08] MEDS: Acetaminophen 325 MG Tablet 650 MG PO (21:41)
[2020-07-08] MEDS: Carvedilol 12.5 MG Tablet PO (21:42)
[2020-07-08] MEDS: SACUBITRIL/VALSARTAN 24/26 MG TABLET 1 EACH PO (21:42)
[2020-07-08] MEDS: Amiodarone 200 MG Tablet 400 MG PO (21:42)
[2020-07-09] VITALS (7 sets, daily range): BP systolic 91–108; BP diastolic 42–68; PULSE 48–91; RESP 18–22; TEMP 36.4–36.7; O2SAT 92–96
[2020-07-09] MEDS: Acetaminophen 325 MG Tablet 650 MG PO (05:44)
[2020-07-09] MEDS: Enoxaparin 60 MG/0.6 ML Syringe SC (05:45)
[2020-07-09 06:09] LABS: AST(SGOT) 189 U/L (15-37); Alanine Aminotransfer ALT/SGPT 124 U/L (13-56); Albumin, Serum 2.8 g/dL (3.2-5.0); Alkaline Phosphatase 99 U/L (45-117); Anion Gap 8 (5-15); BUN 32 mg/dL (7-18); BUN/Creat Ratio 25.8 RATIO (10-20); Calcium,Total 8.7 mg/dL (8.5-10.1); Chloride 108 mmol/L (98-107); Creatinine, Serum 1.24 mg/dL (0.55-1.02); EST Glomerular Filtration Rate 45 mL/min (>60); Est Glom Filt Rate - Afr Amer 54 mL/min (>60); Estimated Creatinine Clearance 30.05 ml/min; Globulin 2.8 g/dL (2.2-4.2); Glucose 125 mg/dL (74-106); Potassium 3.3 mmol/L (3.5-5.1); Protein, Total 5.6 g/dL (6.4-8.2); Sodium Level 140 mmol/L (136-145); Thyroid Stim Hormone (TSH) 0.81 uIU/mL (0.358-3.74)
--- NOTE | 2020-07-09 07:50 | PN.CARD_ITS ---
Subjectve: Patient seen and evaluated. Appears to be doing well. Objective: Vital Signs Temp Pulse Resp BP Pulse Ox 97.8 F 76 18 91/68 96 07/09/20 02:21 07/09/20 07:38 07/09/20 02:21 07/09/20 02:21 07/09/20 02:21 Oxygen Delivery Method Room Air Weight: 130 lb Body Mass Index (BMI) 23.8 Intake and Output for Last 24 Hours 07/08/20 07/08/20 07/09/20 00:59 23:59 23:59 Intake Total 170 / 170 Balance 170 / 170 General: Awake, Alert, Oriented x 3 HEENT: PERRL, EOMI, Sclera Non Icteric Neck: Supple, Good ROM, No Lymph Node Enlargement Lungs: Clear to auscultation Cardiovascular: Irregular Rhythm, Normal S1, Normal S2, No Murmurs, No Rubs, No Gallops Vascular: No Carotid Bruits, Normal Femoral Pulses, Normal Radial Pulses, Normal Dorsalis Pedal Pulse, Normal Posterior Tibial Pulses Abdomen: Bowel Sounds Present, Soft, Non Tender, No HSM, No Organomegaly Extremities: No Cyanosis, No Clubbing, No edema Musculoskeletal: No Erythema Skin: No Rashes Lymphatic: No Lymph Node Enlargement Neurological: No Focal Motor or Sensory Deficit 07/08/20 09:05: WBC 10.7, RBC 4.39, Hgb 12.3, Hct 38.4, MCV 87.5, MCH 28.0, MCHC 32.0, Plt Count 285, MPV 11.7, Immature Gran % (Auto) 0.500, Neut % (Auto) 79.2 H, Lymph % (Auto) 13.0 L, [place] % (Auto) 6.8, Eos % (Auto) 0.3, Baso % (Auto) 0.2, Absolute Neuts (auto) 8.5 H, Nucleated RBC % 0 07/08/20 09:05: Sodium 139, Potassium 2.5 L*, Chloride 101, Carbon Dioxide 27.0, Anion Gap 11, BUN 28 H, Creatinine 1.33 H, Est GFR (MDRD) Af Amer 50 L, Est GFR (MDRD) Non-Af 41 L, BUN/Creatinine Ratio 21.1 H, Glucose 203 H, Calcium 9.8, Troponin I 0.090 H 07/08/20 14:05: Troponin I 0.099 H 07/08/20 17:04: Sodium 140, Potassium 3.5, Chloride 107, Carbon Dioxide 23.0, Anion Gap 10, BUN 29 H, Creatinine 1.15 H, Est GFR (MDRD) Af Amer 59 L, Est GFR (MDRD) Non-Af 49 L, BUN/Creatinine Ratio 25.2 H, Glucose 158 H, Calcium 8.8 07/08/20 17:04: Troponin I 0.077 H 07/09/20 05:06: Sodium 140, Potassium 3.3 L, Chloride 108 H, Carbon Dioxide 24.0, Anion Gap 8, BUN 32 H, Creatinine 1.24 H, Est GFR (MDRD) Af Amer 54 L, Est GFR (MDRD) Non-Af 45 L, BUN/Creatinine Ratio 25.8 H, Glucose 125 H, Calcium 8.7, Magnesium 2.0, Total Bilirubin 1.40 H Rhythm: EKG: ECHO: Stress Test: Cardiac Cath: PCI: CT Surgery: Holter monitor: EPS: PPM: CXR: Chest CT Scan: Medical Necessity - Tobacco Use Smoking Status: Never smoker Tobacco Use: Non-smoker Assessment/Plan 1. Atrial fibrillation * Patient appears to have had atrial fibrillation which is fairly longstanding. She has not wanted to be on anticoagulation and has not wanted to be cardioverted. It appears that she had developed a rapid ventricular response rate. Her rate is better controlled on the current medical therapy. * The plan for today will be to repeat her echocardiogram to reassess her left ventricular function and continue her beta-akyleen as well as the amiodarone. * As noted before she does not want anticoagulation. She understands the risks of the above. * 2. 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 * Recommendation would be to continue with the sacubitril * She may need a low-dose of a diuretic. * The echocardiogram will be repeated to reassess her left ventricular function. Depending on those findings further recommendations will then be made. * She has been considered to be a potential candidate for an implantable defibrillator but as of the last the discussion she was not interested. * * Thank you for allowing me to participate in the care of your patient. Please don't hesitate to call if any issues arise.
[2020-07-09] MEDS: Amiodarone 200 MG Tablet 400 MG PO (09:09)
[2020-07-09] MEDS: SACUBITRIL/VALSARTAN 24/26 MG TABLET 1 EACH PO (09:09)
[2020-07-09] MEDS: Carvedilol 12.5 MG Tablet PO (09:09)
--- NOTE | 2020-07-09 10:47 | NURSING ---
Spoke with daughter, Daughter would like to know if this nurse could talk with hospice social worker and ask for her to provide patient with information on elderly resources in area, and also explain POA paper work to patient so daughters can have further conversation with patient once she is home. Information passed to bingo worker who stated daughter had also called her and she was aware of the request.
--- NOTE | 2020-07-09 13:46 | CASEMGMT ---
SW called patient's daughter, Katina Rosas back per her request. She expressed concern with patient and living at home. She and her sister help her, but they both work. She said she doesn't do the best with caring for herself. She was asking if SW could offer some information. She also asked if SW could talk with patient about healthcare power of banking attorney. SW told her SW will talk with patient and get back with her. She said she and her sister have differing opinions on patient, but they are ultimately on the same team. Antonette STAHL MSW
--- NOTE | 2020-07-09 13:49 | CASEMGMT ---
Assessment- SW spoke with patient. Introduced self and role at [facility]. Patient appeared to be alert and oriented X3. Living situation- Patient lives alone in a mobile home with 4 entry steps PCP: Dr Munguia Specialists: Dr Rose-Cardiology Pharmacy: [facility] DME: Patient said she has no equipment ADL's/IADL's: Patient said she is independent with all activities. Her daughters also help her. Past SNF/rehab: No Past HH: Yes. [facility] HH LW: No POA: No. However, SW did complete a Healthcare Power of Bone Puller with patient. Plan: During assessment SW did notice patient gave very short answers with no elaboration. When SW asked her about doing a Healthcare Power of Bone Puller she was in agreement. She knew right away she wanted her daughter Shahrzad to be her HCPOA and Katina to be the alternate. She had no reservations about this at all. ZACHARIAH told her SW will come back by in a little bit to have patient sign documents. ZACHARIAH and RN CT Lopez went back into patient's room to have her sign HCPOA. SW put the papers in front of her to sign and SW reminded her that this is the HCPOA. She seemed confused. SW asked if she remembered SW talking with her about the documents and her picking Shahrzad for her POA. She eventually agreed she remembered. SW again confirmed with her she wants Shahrzad as her first POA and then Katina second. She agreed with this. Copies of the document were made and given to patient along with originals. A copy was also placed in her chart. SW also gathered information on [facility] and [employer]. SW took this information to patient in her room. SW then called patient's daughter Katina back. SW let her know patient appears to have it all together. However, SW noticed her answers are all very short and she doesn't talk anymore than she absolutely has to. SW explained it is almost as if she is afraid to say much of anything because someone may notice some issues with her cognition. SW suggested she contact [facility]. They have an information and referral line as well as they have a service where they can send someone out to do a free evaluation and help with planning for the future and what services she may qualify for. ZACHARIAH told her SW put this information in the room along with the Healthcare POA papers. SW also let her know about the HCPOA papers. She thanked SW for the assistance. Antonette SY
--- NOTE | 2020-07-09 14:51 | PCM.DC ---
- Discharge Diagnoses Current Active Problems: Current Active and Chronic Problems (Last Reviewed 07/08/20 @ 12:[address] Dangelo Villarreal, DO) Unstable angina (Acute) Atrial fibrillation with rapid ventricular response (Acute 03/21/20) Non-ischemic cardiomyopathy (Chronic) Nonrheumatic mitral valve regurgitation (Chronic) Left ventricular diastolic dysfunction (Chronic) Essential (primary) hypertension (Chronic) Hyperlipidemia (Chronic) You will use the following diet at home:: No restrictions Your food should be the consistency of: Regular Your liquids should be the consistency of: Regular/Thin Discharge Activity: Return to Normal Activity Weight Bearing Status: Full weight bearing Allergies/Adverse Reactions: Allergies apixaban [From Eliquis] Adverse Reaction (Verified 07/08/20 08:52) diarrhea Medications to take at Discharge Senna/Docusate Sodium [Senokot-S] 2 tab PO BID PRN PRN tab 03/22/20 carvedilol 12.5 mg tablet 12.5 mg PO BID #180 tab 06/17/20 furosemide 20 mg tablet 20 mg PO DAILY #90 tab 06/17/20 Amiodarone HCl [Cordarone] 400 mg PO UD #60 tab 07/09/20 Apixaban [Eliquis] 5 mg PO BID #60 tab 07/09/20 Sacubitril/Valsartan 24/26 mg [Entresto 24 mg-26 mg Tablet] 1 ea PO BID #60 tab 07/09/20 The following prescriptions were given: Amiodarone HCl [Cordarone] 400 mg PO UD #60 tab Transmission Status: Pending to [facility] Apixaban [Eliquis] 5 mg PO BID #60 tab Transmission Status: Pending to [facility] Sacubitril/Valsartan 24/26 mg [Entresto 24 mg-26 mg Tablet] 1 ea PO BID #60 tab Transmission Status: Pending to [facility] Primary Care Physician: Freddy Rose MD [STAFF PHYSICIAN] - Please follow up with your Primary Care Physician in: IN 2 WEEKS Test Results: Test results from this visit will be discussed in further detail at your follow-up appointment, if applicable.
--- NOTE | 2020-07-11 10:04 | DS.PCM_ITS ---
Discharge Date and Diagnosis - Problem List Patient Problems: Active and Suspected Problems (Last Reviewed 07/08/20 @ 12:[address] Dangelo Villarreal DO) Unstable angina (Acute) Atrial fibrillation with rapid ventricular response (Acute 03/21/20) Date of Admission: 07/08/20 Date of Discharge: 07/09/20 - Primary Discharge Diagnosis Acute Problems: Active Problems (Last Reviewed 07/08/20 @ 12:[address] Dangelo Villarreal DO) #1 atrial fibrillation with a rapid ventricular response #2 angina pectoris secondary to elevated heart rate-acute coronary syndrome ruled out #3 hypokalemia #4 tachycardia induced cardiomyopathy #5 intermediately elevated troponin secondary to increased heart rate #6 stage III chronic kidney disease #7 elevated liver enzymes-etiology unclear - Secondary Discharge Diagnosis Chronic Problems: Chronic Problems (Last Reviewed 07/08/20 @ 12:[address] Dangelo Villarreal DO) Non-ischemic cardiomyopathy (Chronic) Nonrheumatic mitral valve regurgitation (Chronic) Left ventricular diastolic dysfunction (Chronic) Essential (primary) hypertension (Chronic) Hyperlipidemia (Chronic) Hospital Course and Treatment Operations: None Procedures: 2-D Echocardiogram Summary of Care Provided: The patient is a 79 year old F who was seen in the emergency room at [facility] with chief complaint of palpitations and history of atrial fibrillation. Patient was a poor informant and initially told the emergency room physician she had no chest pain with her palpitations. Work-up in the emergency room showed the patient to be in atrial fibrillation with a rapid ventricular response, she was given IV Cardizem which appeared to control her rate, labs also showed a low potassium and she received IV and oral potassium replacement. Patient was admitted to PCU and seen in consultation by cardiology who placed her on amiodarone and Entresto. Labs were monitored, her troponin was in the intermediate range and remained so for the 3 troponin lab values which were obtained. Patient had an echocardiogram obtained which showed an EF of 20%-she was felt to have a rate dependent cardiomyopathy. Patient's heart rate came under better control during her hospitalization. On 07/09/2020, patient was seen and examined: On examination she appeared in good health and spirits, she does not appear to be in any distress. Vital signs as documented. Skin warm and dry and without overt rashes. Neck without JVD, thyroid appears normal, trachea is midline, neck is supple. Lungs clear, normal air movement was noted. Heart exam notable for irregular rhythm, normal sounds and absence of murmurs, rubs or gallops. Abdomen unremarkable and without evidence of organomegaly, masses, or abdominal aortic enlargement, bowel sounds are present in all 4 quadrants, no abdominal tenderness was noted. Extremities nonedematous, no cyanosis was noted, no clubbing was noted. Neuro: Cranial nerves II through XII are grossly intact, no focal motor deficits were noted, sensation to light touch and pinprick is intact, motor exam 5/5 throughout. Psych: Patient is alert and oriented x3, she does not appear anxious or depressed, she does not appear agitated. On 07/09/2020, I had a discussion with the patient concerning the need for anticoagulation due to her atrial fibrillation, patient seemed to understand the risks and benefits of taking an anticoagulant and finally agreed to take Eliquis. She was discharged in stable condition on 07/09/2020. Patient Problems: Active and Suspected Problems (Last Reviewed 07/08/20 @ 12:[address] Dangelo Villarreal, DO) Unstable angina (Acute) Atrial fibrillation with rapid ventricular response (Acute 03/21/20) - Physical Exam Vitals/I&O's: Vital Signs Temp Pulse Resp BP Pulse Ox 98.1 F 48 L 22 H 108/42 L 95 07/09/20 15:00 07/09/20 15:00 07/09/20 15:00 07/09/20 15:00 07/09/20 15:00 Oxygen Delivery Method Room Air Weight: 58.967 kg Body Mass Index (BMI) 23.8 Intake and Output for Last 24 Hours 07/09/20 07/10/20 07/11/20 23:59 23:59 23:59 Intake Total 290 / 290 Balance 290 / 290 Discharge Activity: Return to Normal Activity Weight Bearing Status: Full weight bearing Home Medications: Medications to take at Discharge Senna/Docusate Sodium [Senokot-S] 2 tab PO BID PRN PRN tab 03/22/20 carvedilol 12.5 mg tablet 12.5 mg PO BID #180 tab 06/17/20 furosemide 20 mg tablet 20 mg PO DAILY #90 tab 06/17/20 Amiodarone HCl [Cordarone] 400 mg PO UD #60 tab 07/09/20 Apixaban [Eliquis] 5 mg PO BID #60 tab 07/09/20 Sacubitril/Valsartan 24/26 mg [Entresto 24 mg-26 mg Tablet] 1 ea PO BID #60 tab 07/09/20 Following Prescriptions Were Given to Patient: Amiodarone HCl [Cordarone] 400 mg PO UD #60 tab Transmission Status: Received by [facility] Apixaban [Eliquis] 5 mg PO BID #60 tab Transmission Status: Received by [facility] Sacubitril/Valsartan 24/26 mg [Entresto 24 mg-26 mg Tablet] 1 ea PO BID #60 tab Transmission Status: Received by [facility] Primary Care Physician: Freddy Rose MD [STAFF PHYSICIAN] - Please follow up with your Primary Care Physician in: IN 2 WEEKS Disposition: Home Minutes spent on discharge:: 32 Patient Condition:: Stable Medical Necessity - Tobacco Use Smoking Status: Never smoker Tobacco Use: Non-smoker Meaningful Use Info Meaningful Use Diagnoses (Choose all that apply): None applicable Inpatient E&M: [id number] [facility]
== END 2020-07-09 15:47 | disposition home or self-care (01) | DRG 309 ==
LOC: ED 11:27 → PCU 12:20
PROVIDERS: Internal Medicine Cardiovascular Disease; Emergency Provider Emergency Medicine; PCP Family Medicine; Visit Provider Internal Medicine
DX: I48.0 Paroxysmal atrial fibrillation (principal); I20.0 Unstable angina; I13.0 Hypertensive heart and chronic kidney disease with heart failure and stage 1 through stage 4 chronic kidney disease, or unspecified chronic kidney disease; I50.22 Chronic systolic (congestive) heart failure; I42.0 Dilated cardiomyopathy; E87.6 Hypokalemia; N18.30 Chronic kidney disease, stage 3 unspecified; E78.5 Hyperlipidemia, unspecified; I34.0 Nonrheumatic mitral (valve) insufficiency; R74.8 Abnormal levels of other serum enzymes
CPT/HCPCS: 36415; 71045; 80048; 80053; 83735; 84443; 84484; 85025; 93005; 93308; 99285; J7030; A4216; J2405

== ENCOUNTER → 2020-07-16 15:29 | Outpatient (CLI) | payer MEDICARE, SELFPAY ==
[2020-07-08 12:52] VITALS: BMI 23.8
[2020-07-16 18:05] LABS: Anion Gap 8 (5-15); BUN 9 mg/dL (7-18); BUN/Creat Ratio 8.2 RATIO (10-20); Calcium,Total 9.5 mg/dL (8.5-10.1); Chloride 106 mmol/L (98-107); EST Glomerular Filtration Rate 51 mL/min (>60); Est Glom Filt Rate - Afr Amer 62 mL/min (>60); Glucose 111 mg/dL (74-106); Sodium Level 139 mmol/L (136-145)
== END ==
PROVIDERS: PCP Family Medicine; Referring Provider Family Medicine; Visit Provider Family Medicine
DX: E87.6 Hypokalemia (principal)
CPT/HCPCS: 36415; 80048